=== PATIENT | female | born 1955 | race Caucasian/White ===

== ENCOUNTER 2023-10-10 07:22 | Emergency (ER) | payer MEDICARE, SELFPAY ==
[2023-10-10 07:28] VITALS: BP 166/96; PULSE 79; TEMP 36.6; O2SAT 98; BMI 32.8
--- NOTE | 2023-10-10 07:42 | ED_ITS ---
HPI - Chest Pain General Chief Complaint: Chest Pain Stated Complaint: CHEST PAIN WHEN BREATHING Time Seen by Provider: 10/10/23 07:42 Source: patient and family Mode of arrival: walk-in History of Present Illness HPI narrative: This patient is here for complaint of chest discomfort. She says for the most part it only bothers her when she takes a deep breath. It has been intermittent over the last 48 hours. There is no associated nausea vomiting or diaphoresis. There is no radiation to the neck jaw or arms. There is no tearing or ripping station. There is no associated shortness of breath. She denies any history of hypertension diabetes and she says her doctor is watching her cholesterol but she is not on any treatment. She has never had cardiac stress testing or coronary angiogram. She has no calcium scoring testing done in the past. She has no immediate family history of cardiac disease. She has no dyspnea on exertion. She says that she has been extremely busy with family events over this week and thinks it might be stress or heartburn. She says sometimes she belches when she drinks pop and sometimes it relieves it. She does not use tobacco products or any type of illicit drugs. Related Data Home Medications ?Medication ?Instructions ?Recorded ?Confirmed dapsone 5 % topical gel 1 applic topical DAILY 10/10/23 10/10/23 epinephrine 0.3 mg/0.3 mL 0.3 mg subcut ONCE PRN anaphylaxis 10/10/23 10/10/23 injection, auto-injector hydrochlorothiazide 12.5 mg capsule 12.5 mg PO Q12H 10/10/23 10/10/23 levothyroxine 75 mcg tablet 75 mcg PO DAILY 10/10/23 10/10/23 liothyronine 5 mcg tablet 5 mcg PO DAILY 10/10/23 10/10/23 Allergies Allergy/AdvReac Type Severity Reaction Status Date / Time bee venom protein (honey bee) Allergy Unknown Verified 10/10/23 07:32 Exam Narrative Exam Narrative: Awake alert modestly anxious. Skin is warm and dry mucous membranes are moist pink Vital signs are noted. She does have slight elevation of her blood pressure here we will monitor that. Initial twelve-lead EKG was done immediately on arrival shows sinus rhythm with no ST segment elevation or arrhythmia. It was compared to her previous EKG of 2006 and there is no interval change. Heart sounds are normal with no S3-S4 or murmur. No lungs were clear with no wheeze rales or rhonchi there is no pleural or pericardial rub. Legs have no edema phlebitis erythema warmth swelling or tenderness. Skin integument are normal. Cognition and mentation are normal. Constitutional Vital Signs, click to edit/add: Last Vital Signs Temp 97.8 F 10/10/23 07:28 Pulse 79 10/10/23 07:28 Resp 16 10/10/23 07:28 BP 166/96 H 10/10/23 07:28 Pulse Ox 98 10/10/23 07:28 O2 Del Method Room Air 10/10/23 07:28 Course Vital Signs Vital signs: Vital Signs Temperature 97.8 F 10/10/23 07:28 Pulse Rate 79 10/10/23 07:28 Respiratory Rate 16 10/10/23 07:28 Blood Pressure 166/96 H 10/10/23 07:28 Pulse Oximetry 98 10/10/23 07:28 Oxygen Delivery Method Room Air 10/10/23 07:28 Temperature 97.8 F 10/10/23 07:28 Pulse Rate 79 10/10/23 07:28 Respiratory Rate 16 10/10/23 07:28 Blood Pressure 166/96 H 10/10/23 07:28 Pulse Oximetry 98 10/10/23 07:28 Oxygen Delivery Method Room Air 10/10/23 07:28 MDM - Chest Pain MDM Narrative Medical decision making narrative: This patient's EKG cardiac enzymes chest x-ray are essentially normal. The chest x-ray is read as possible basilar atelectasis/infiltrate I do not believe this is infectious process. We discussed following up with her primary care doctor but I do not believe she has any immediate cardiovascular events. Discharge Plan Discharge Stand Alone Forms: Portal Instructions Chief Complaint: Chest Pain Clinical Impression: Chest pain Patient Disposition: Home, Self-Care Time of Disposition Decision: 09:23 Prescriptions / Home Meds: No Action liothyronine 5 mcg tablet 5 mcg PO DAILY hydrochlorothiazide 12.5 mg capsule 12.5 mg PO Q12H Patient Comments: pt states she does not always take daily epinephrine 0.3 mg/0.3 mL auto-injector 0.3 mg subcut ONCE PRN (Reason: anaphylaxis) dapsone 5 % gel 1 applic TOPICAL DAILY levothyroxine 75 mcg tablet 75 mcg PO DAILY Print Language: French Additional Instructions: This patient was referred to her primary care doctor for further diagnostic testing. May consider [id number] acid blocking medications Referrals: ULISES SHINE [Primary Care Provider] - 1 week
--- NOTE | 2023-10-10 08:00 | XR_ITS ---
The [address] [address] Patient Name: RADHA MCKEON MRN: [id number] date: 1955 Sex: F Assigned Patient Location: ER Current Patient Location: ER Accession/Order Number: [id number] Exam Date: 10/10/2023 08:15 Report Date: 10/10/2023 08:30 At the request of: LUIS BANKS Procedure: XR chest 1V EXAMINATION: XR chest 1V HISTORY: Chest pain COMPARISON: None FINDINGS: LUNGS: Mild opacity overlying lung bases. Upper lung regions are clear. VASCULATURE: No increased pulmonary vasculature. PLEURA: No pneumothorax, effusion, or pleural thickening. CARDIAC: No cardiomegaly or cardiac silhouette abnormality. MEDIASTINUM: No visible mass or adenopathy. BONES: No fracture or visible bone lesion. OTHER: Negative. XR/XR chest 1V IMPRESSION: 1. Mild bibasilar atelectasis versus infiltrates. Electronically authenticated by: JAREN CRISTOBAL Date: 10/10/2023 08:30
[2023-10-10 08:17] LABS: Basophils Percent Auto 0.5 % (0.2-2.0); Eosinophils Absolute Auto 0.1 10^3/uL (0.0-0.7); Hematocrit 42.6 % (36.0-48.0); Hemoglobin 14.6 g/dL (12.0-16.0); Immature Granulocytes Abs Auto 0.02 10^3/uL (0.00-0.03); Immature Granulocytes Pct Auto 0.3 % (0.0-0.5); Lymphocytes Absolute Auto 1.8 10^3/uL (1.2-3.8); Lymphocytes Percent Auto 29.8 % (20.5-60.0); Mean Corpuscular HGB Conc 34.3 g/dL (29.9-35.2); Mean Corpuscular Hemoglobin 31.7 pg (26.7-34.0); Mean Corpuscular Volume 92.6 fL (81.0-99.0); Mean Platelet Volume 9.9 fL (9.5-13.5); Monocytes Absolute Auto 0.5 10^3/uL (0.3-0.8); Monocytes Percent Auto 8.3 % (1.7-12.0); Neutrophils Absolute Auto 3.6 10^3/uL (1.4-6.5); Neutrophils Percent Auto 59.1 % (43.0-75.0); Platelet Count 272 10^3/uL (150-450); Red Cell Distribution Width 12.7 % (11.0-15.0); White Blood Count 6.2 10^3/uL (4.0-11.0)
[2023-10-10 08:39] LABS: Alanine Aminotransferase 29 U/L (14-59); Albumin Level 3.7 g/dL (3.4-5.0); Alkaline Phosphatase 64 U/L (46-116); Anion Gap 13.7; Aspartate Amino Transferase 24 U/L (15-37); BUN Creatinine Ratio 15.2; Bilirubin Total 0.5 mg/dL (0.2-1.0); Calcium 8.9 mg/dL (8.5-10.1); Chloride 103 mmol/L (98-107); Estimated GFR (African America >60 (>=60); Estimated GFR (Non-African Ame >60 (>=60); Globulin 3.7 g/dL; Glucose 120 mg/dL (74-106); Potassium 3.7 mmol/L (3.5-5.1); Sodium 141 mmol/L (136-145); Total Protein 7.4 g/dL (6.4-8.2); Troponin I High Sensitivity 8.8 pg/mL (4.0-51.3)
[2023-10-10 08:47] LABS: D Dimer 0.39 mg/L FEU (<=0.59)
[2023-10-10 09:17] VITALS: BP 170/100
--- NOTE | 2023-10-10 17:14 | ECG_ITS ---
The [facility] Test Date: 2023-10-10 Pat Name: RADHA MCKEON Department: Room: - Gender: Female [employer]: : 1955 Requested By: ULISES SHINE Order Number: [id number] Reading MD: WALLACE PATEL Measurements Intervals [place] Rate: 69 P: 76 AK: 140 QRS: 16 QRSD: 84 T: 25 QT: 394 QTc: 412 Interpretive Statements 1100 Sinus rhythm 9110 normal ECG No previous ECG available for comparison Electronically Signed On 10-10-2023 22:48:37 EDT by WALLACE PATEL
== END 2023-10-10 09:50 | disposition home or self-care (01) ==
PROVIDERS: Emergency Provider Emergency Medicine Emergency Medical Services; PCP Family Medicine
DX: R07.9 Chest pain, unspecified (principal)
CPT/HCPCS: 36415; 71045; 80053; 84484; 85025; 85378; 93005; 99284

== ENCOUNTER 2023-11-28 09:56 | Outpatient (OUT) | payer MEDICARE, SELFPAY ==
--- NOTE | 2023-11-28 | XR_ITS ---
The [address] [address] Patient Name: RADHA MCKEON MRN: [id number] date: 1955 Sex: F Assigned Patient Location: Current Patient Location: Accession/Order Number: [id number] Exam Date: 11/28/2023 10:00 Report Date: 11/30/2023 05:04 At the request of: JAREN GIBSON Procedure: XR knee RT 4V PROCEDURE: XR knee RT 4V HISTORY: RIGHT KNEE PAIN COMPARISON: None. FINDINGS: BONES:Marked narrowing of the medial joint space with onke-ni-zidp articulation. Tricompartmental periarticular degenerative osteophytes. No fracture or dislocation. SOFT TISSUES:No visible soft tissue swelling. EFFUSION:Moderate joint effusion. OTHER: Negative. XR/XR knee RT 4V IMPRESSION: 1. Marked degenerative joint disease and moderate size joint effusion. Electronically authenticated by: JAREN CRISTOBAL Date: 11/30/2023 05:04
--- OUTSIDE RECORDS SUMMARY | 2023-11-28 10:04 | XMS_ITS | CCD ---
Author Organization [facility] Care Team Providers Care Solderer Electronic Name Role Phone Malina Harrington Primary Care Physician Johnie Grider Primary Care Physician [phone] Johnie Grider Attending Unavailable Johine Grider Attending Unavailable Johnie Grider Attending Unavailable Johnie Grider Attending Unavailable Johnie Grider Attending Unavailable Johnie Grider Attending Unavailable Johnie Grider Attending Unavailable Johnie Grider Attending Unavailable Johnie Grider Admitting Unavailable Johnie Grider Attending Unavailable Johnie Grider Admitting Unavailable Johnie Grider Attending Unavailable Johnie Grider Attending Unavailable Johnie Grider Admitting Unavailable Johnie Grider Attending Unavailable Johnie Grider Attending Unavailable Allergies Allergy Classification Reported Allergen(s) Allergy Type Date of Onset Reaction(s) Facility (11 sources) Bee/Wasp/Ant venom; Translations: [Bee Stings] Drug allergy Itching (finding), Swelling (morphologic abnormality) [facility] Work Phone: Medications Current Medications Medication Drug Class(es) Dates Sig (Normalized) Sig (Original) Ocuvite (10 sources) Vitamin C Start: 06-26-2019 Ocuvite Refill(s) 0 Start Date: 06/26/19 Status: Ordered Calcium and Magnesium oral tablet (7 sources) Start: 06-26-2019 take 3 tablets by mouth once daily Calcium and Magnesium oral tablet Refill(s) 0, 3 tabs po daily Start Date: 06/26/19 Status: Ordered Zyrtec (9 sources) Histamine-1 Receptor Antagonist Start: 06-26-2019 Zyrtec Refills(s) 0 Start Date: 06/26/19 Status: Ordered Dapsone (10 sources) Sulfone Start: 04-28-2023 dapsone 5% gel dapsone 5% gel, See Instructions, 60 gm, 1, apply to affected area daily, [facility]/pharmacy #[id number], Supply, 171, cm, 04/28/23 14:49:00 EST, Height/Length Dosing, 98.8, kg, 04/28/23 14:49:00 EST, Weight Dosing Start Date: 04/28/23 Status: Ordered Start: 01-18-2022 dapsone 5% gel dapsone 5% gel, See Instructions, 60 gm, 1, apply to affected area daily, [facility]/pharmacy #[id number], Supply, 175, cm, 08/31/21 11:13:00 EDT, Height/Length Dosing, 96, kg, 08/31/21 11:13:00 EDT, Weight Dosing Start Date: 01/18/22 Status: Ordered Start: 04-08-2021 [id number] 0.3 ml EPINEPHrine 1 mg/ml auto-injector (10 sources) alpha-Adrenergic Agonist, beta-Adrenergic Agonist, Catecholamine Start: 08-25-2022 EpiPen 2-Beau 0.3 mg injectable kit 0.3 mg, IntraMuscular, Once, prn, # 1 EA, Refills(s) 2, ELISE, [id number] 175, cm, 03/02/22 11:35:00 EST, Height/Length Dosing, 91, kg, 03/02/22 11:35:00 EST, Weight Dosing Start Date: 08/25/22 Status: Ordered Start: 03-02-2021 EpiPen 2-Beau 0 .3 mg injectable kit 0.3 mg, IntraMuscular, Once, prn, # 1 kit(s), Refills(s) 2, [id number], 175, cm, 03/02/21 11:09:00 EST, Height/Length Dosing, 99.1, kg, 03/02/21 11:09:00 EST, Weight Dosing Start Date: 03/02/21 Status: Ordered Start: 03-02-2021 EpiPen 2-Beau 0 .3 mg injectable kit 0.3 mg, IntraMuscular, Once, prn, # 1 kit(s), Refills(s) 2, Pharmacy: [facility]/pharmacy #[id number], 175, cm, 03/02/21 11:09:00 EST, Height/Length Dosing, 99.1, kg, 03/02/21 11:09:00 EST, Weight Dosing Start Date: 03/02/21 Status: Ordered Flax Seed Oil oral capsule (7 sources) Start: 06-26-2019 Flax Seed Oil oral capsule Refill(s) 0 Start Date: 06/26/19 Status: Ordered hydroCHLOROthiazide 12.5 mg oral capsule (1 source) Thiazide Diuretic Start: 07-25-2023 take 1 capsule by mouth once daily hydrochlorothiazide 12.5 mg Cap See Instructions, TAKE 1 CAPSULE BY MOUTH EVERY DAY, # 90 cap(s), Refills(s) 0, Pharmacy: [facility] STORE [id number], 171, cm, 04/28/23 14:49:00 EST, Height/Length Dosing, 98.8, kg, 04/28/23 14:49:00 EST, Weight Dosing Start Date: 07/25/23 Status: Ordered levothyroxine sodium 0.075 mg oral tablet (1 source) l-Thyroxine Start: 09-01-2023 take 1 tablet by mouth once daily levothyroxine 75 mcg (0.075 mg) Tab 75 mcg = 1 tab(s), Oral, Daily, # 90 tab(s), Refills(s) 0, Pharmacy: [facility]/pharmacy #[id number], 171, cm, 09/01/23 10:32:00 EDT, Height/Length Dosing, 103.2, kg, 09/01/23 10:32:00 EDT, Weight Dosing Start Date: 09/01/23 Status: Ordered liothyronine sodium 0.005 mg oral tablet (1 source) l-Triiodothyr onine Start: 09-01-2023 take 1 tablet by mouth once daily liothyronine 5 mcg Tab 5 mcg = 1 tab(s), Oral, Daily, # 90 tab(s), Refills(s) 0, Pharmacy: [facility]/pharmacy #[id number], 171, cm, 09/01/23 10:32:00 EDT, Height/Length Dosing, 103.2, kg, 09/01/23 10:32:00 EDT, Weight Dosing Start Date: 09/01/23 Status: Ordered lysine 500 mg oral tablet (10 sources) Start: 06-26-2019 take 1 tablet by mouth once daily lysine 500 mg oral tablet 500 mg = 1 tab(s), Oral, Daily, # 100 tab(s), Refills(s) 0 Start Date: 06/26/19 Status: Ordered thyroid (snf) 60 mg oral tablet (12 sources) Start: 01-27-2023 take 1 tablet by mouth once daily [place] Thyroid 60 mg Tab 60 mg = 1 tab(s), Oral, Daily, # 30 tab(s), Refills(s) 2, Pharmacy: [facility]/pharmacy #[id number], 170.2, cm, 01/17/23 9:33:00 EDT, Height/Length Dosing, 98.6, kg, 01/17/23 9:33:00 EDT, Weight Dosing Start Date: 01/27/23 Status: Ordered Start: 10-22-2022 take 1 tablet by rachael th once daily [place] Thyroid 90 mg Tab 90 mg = 1 tab(s), Oral, Daily, # 90 tab(s), Refills(s) 0, Pharmacy: [facility]/pharmacy #[id number], 170.2, cm, 10/13/22 8:53:00 EDT, Height/Length Dosing, 98.3, kg, 10/13/22 8:53:00 EDT, Weight Dosing Start Date: 10/22/22 Status: Ordered Start: 08-17-2022 take 1 tablet by rachael th once daily [place] Thyroid 60 mg Tab 60 mg = 1 tab(s), Oral, Daily, one tab 60mg oral once daily Tuesday and ELISE no generic, # 90 tab(s), Refills(s) 0, Pharmacy: [facility]/pharmacy #[id number], 175, cm, 03/02/22 11:35:00 EST, Height/Length Dosing, 91, kg, 03/02/22 11:35:... Start Date: 08/17/22 Status: Ordered Start: 06-01-2022 take 1 tablet by mouth once [place] Thyroid 90 mg Tab 90 mg = 1 tab(s), Oral, Daily, One 90mg tab once on Tuesday ELISE no generic, # 90 tab(s), Refills(s) 1, Pharmacy: [facility]/pharmacy #[id number], 175, cm, 03/02/22 11:35:00 EST, Height/Length Dosing, 91, kg, 03/02/22 11:35:00 EST, Weight Dosing Start Date: 06/01/22 Status: Ordered Start: 02-01-2022 take 1 tablet by rachael th once daily [place] Thyroid 90 mg Tab 90 mg = 1 tab(s), Oral, Daily, # 30 tab(s), Refills(s) 2, [id number] 175, cm, 08/31/21 11:13:00 EDT, Height/Length Dosing, 96, kg, 08/31/21 11:13:00 EDT, Weight Dosing Start Date: 02/01/22 Status: Ordered Start: 11-02-2021 take 1 tablet by rachael once daily [place] Thyroid 90 mg Tab 90 mg = 1 tab(s), Oral, Daily, # 60 tab(s), Refills(s) 0, [id number], 175, cm, 08/31/21 11:13:00 EDT, Height/Length Dosing, 96, kg, 08/31/21 11:13:00 EDT, Weight Dosing Start Date: 11/02/21 Status: Ordered Start: 04-08-2021 [place] Thyroid 15 mg Tab 15 mg = 1 tab(s), Oral, Daily, Take with 120mg [place] Thyroid for a total of 135mg daily., # 90 tab(s), Refills(s) 2, [id number], 175, cm, 03/02/21 11:09:00 EST, Height/Length Dosing, 99.1, kg, 03/02/21 11:09:00 EST, Weight Dosing Start Date: 04/08/21 Status: Ordered Start: 03-04-2021 [place] Thyroid 120 mg Tab 120 mg = 1 tab(s), Oral, Daily, take with 15mg dosage to equal 135mg, # 90 tab(s), Refills(s) 2, [id number], 175, cm, 03/02/21 11:09:00 EST, Height/Length Dosing, 99.1, kg, 03/02/21 11:09:00 EST, Weight Dosing Start Date: 03/04/21 Status: Ordered Turmeric extract (1 source) Start: 04-07-2023 Turmeric Oral, Daily, Refill(s) 0 Start Date: 04/07/23 Status: Ordered Vitamin B6 100 mg Tab (10 sources) Start: 06-26-2019 Vitamin B6 100 mg Tab Refills(s) 0 Start Date: 06/26/19 Status: Ordered Completed/Discontinued Medications Medication Drug Class(es) Dates Sig (Normalized) Sig (Original) biotin 1 mg oral tablet (10 sources) Start: 06-26-2019 take 1 tablet by mouth once daily biotin 1000 mcg oral tablet 1,000 microgram = 1 tab(s), Oral, Daily, # 30 tab(s), Refills(s) 0 Start Date: 06/26/19 Status: Ordered calcitriol 0.363043 mg/mg topical ointment (9 sources) Vitamin D3 Analog Start: 02-28-2020 apply 3 ug topically twice daily calcitriol topical 3 mcg/g ointment See Instructions, 100 gm, Refill(s) 1, Apply BID to affected areas as directed, [facility]/pharmacy #[id number], 175, cm, 02/25/20 12:49:00 EST, Height/Length Dosing, 101.3, kg, 02/25/20 12:49:00 EST, Weight Dosing Start Date: 02/28/20 Status: Ordered calcitriol topical 3 mcg/g ointment (1 source) Start: 02-28-2020 apply 3 ug topically twice daily calcitriol topical 3 mcg/g ointment See Instructions, 100 gm, Refill(s) 1, Apply BID to affected areas as directed, [facility]/pharmacy #[id number], 175, cm, 02/25/20 12:49:00 EST, Height/Length Dosing, 101.3, kg, 02/25/20 12:49:00 EST, Weight Dosing Start Date: 02/28/20 Status: Ordered Vitamin D3 5000 intl units oral capsule (10 sources) Start: 06-26-2019 take 1 capsule by mouth once daily at mealtime Vitamin D3 5000 intl units oral capsule 5,000 International_Uni t = 1 cap(s), Oral, Daily, with food, # 100 cap(s), Refills(s) 0 Start Date: 06/26/19 Status: Ordered Problems Problem Classification Problem Date Documented Date Episodic/Chronic Allergic reactions (10 sources) Allergy to bee venom 08-25-2020 Episodic Essential hypertension (12 sources) Essential hypertension; Translations: [Essential (primary) hypertension] Onset: 08-31-2021 Chronic Nutritional deficiencies (7 sources) Vitamin D deficiency 02-25-2020 Chronic Osteoarthritis (3 sources) Osteoarthritis 01-17-2023 Chronic Other circulatory disease (2 sources) Spider nevus 03-14-2023 Episodic Other nutritional; endocrine; and metabolic disorders (10 sources) Body mass index 30+ - obesity 06-26-2019 Chronic Other nutritional; endocrine; and metabolic disorders (10 sources) Obesity 08-25-2020 Chronic Other nutritional; endocrine; and metabolic disorders (4 sources) H/O: Disorder; Translations: [Personal history of other endocrine, nutritional and metabolic disease] Onset: 08-31-2021 Episodic Other nutritional; endocrine; and metabolic disorders (10 sources) H/O: nutritional disorder 08-31-2021 Episodic Other nutritional; endocrine; and metabolic disorders (10 sources) History of nutritional deficiency 08-31-2021 Episodic Other nutritional; endocrine; and metabolic disorders (1 source) Weight gain 09-01-2023 Episodic Other screening for suspected conditions (not mental disorders or infectious disease) (1 source) Screening for malignant neoplasm of colon done; Translations: [Encounter for screening for malignant neoplasm of colon] Onset: 03-02-2022 Episodic Residual codes; unclassified (6 sources) Parasomnia; Translations: [Parasomnia, unspecified] Onset: 08-26-2022 Chronic Residual codes; unclassified (6 sources) Noncompliance with treatment; Translations: [Patient's noncompliance with other medical treatment and regimen due to unspecified reason] Onset: 08-26-2022 Episodic Thyroid disorders (13 sources) Hypothyroidism; Translations: [Hypothyroidism, unspecified] Onset: 08-31-2021 Chronic Unclassified (10 sources) Cancer cervix screening status 06-26-2019 Unclassified (20 sources) Patient encounter status 02-25-2020 Results Test Name Value Interpretation Reference Range Facil ity Ambulatory Visit Summaryon 0 10-18-2023 Ambulatory Visit Summary LORAINE LANDEROS :1955 Visit Date:10/18/2023 Ambulatory Visit Instructions Your Diagnosis Follow-up encounter involving medication Chest pain BMI 34.0-34.9,adult Class 1 obesity due to excess calories in adult Nonsmoker Your Care Team Attending Physician - Johnie Grider MD Primary Care Physician - Johnie Grider MD This Is Your Medications List Contact prescribing physician if questions or concerns Misc Prescription (dapsone 5% gel) Turmeric biotin (biotin 1000 mcg oral tablet) calcitriol topical (calcitriol topical 3 mcg/g ointment) cholecalciferol (Vitamin D3 5000 intl units oral capsule) epinephrine (EpiPen 2-Beau 0.3 mg injectable kit) hydrochlorothiazide (hydrochlorothiazide 12.5 mg Cap) levothyroxine (levothyroxine 75 mcg (0.075 mg) Tab) liothyronine (liothyronine 5 mcg Tab) lysine (lysine 500 mg oral tablet) multivitamin with minerals (Ocuvite) pyridoxine (Vitamin B6 100 mg Tab) Procedures Performed Bilateral tubal ligation, D&C - Dilatation and curettage. Discharge Vitals Temperature (Oral) 36.7 ?C Heart Rate (Peripheral) 68 Respiratory Rate 16 Blood Pressure 126/78 Height 171 cm Height 67 in Weight 102.2 kg Weight 224.84 lb BMI 34.95 What to do next Scheduled Follow-Up Appointments Tuesday 8:00 AM EST Where: [facility] [place] Normal [facility] Family Medicine Office/Clini c Noteon 10-18-2023 Family Medicine Office/Clinic Note HPI Staff Loraine is a 68 year old female presenting for ER follow up ER followup: Hospital: [place] Visit date:10/09 Symptoms the patient presented with: chest pain pulled muscle EKG and chest X-ray done in ER Current concerns: none History of Present Illness - In the ER for CP - Diagnosed as noncardiac - NO SOB - Doing well. - Using tums. Review of Systems PHQ Score Initial Depression Screen Score: 0 SCORE Physical Exam Vitals & Measurements T: 36.7 ?C(Oral) HR: 68(Peripheral) RR: 16 BP: 126/78 SpO2: 98% HT: 67 in HT: 171 cm WT: 102.2 kg WT: 224.84 lb BMI: 34.95 General: alert, no acute distress ENMT: oral mucosa moist, Cardiovascular: regular rate and rhythm, normal peripheral perfusion Respiratory: Lungs CTA, respirations non labored Extremities: no deformity, no trauma Neurological: oriented x 4, LOC appropriate for age, CN II-XII intact, motor strength equal & normal bilaterally, speech normal Abdomen: Soft, Nontender, Non-distended, + BS Assessment/Plan Total time spent preparing for the encounter, evaluating and assessing the patient, documenting the visit, and ordering appropriate follow-up work was 40 minutes. 1. Follow-up encounter involving medication (Z79.899: Other parts counterman (current) drug therapy) - Pt was prescribed medications. - Pt is only going to take Tums - No other issues 2. Chest pain (R07.9: Chest pain, unspecified) - Resolved - 2/2 GERD 3. BMI 34.0-34.9,adult (Z68.34: Body mass index [BMI] 34.0-34.9, adult) - BMI education added Ordered: Body Mass Index (BMI) documented 3008F Current tobacco non-user 1036F Depression Screening Negative 3352F Most recent diastolic blood pressure <80 mm Hg 3078F Patient screen for fall risk: no falls in last year or 1 fall with no injury in last year 1101F Systolic BP <130 mm Hg (Most Recent) 3074F 4. Class 1 obesity due to excess calories in adult (E66.09: Other obesity due to excess calories) - Diet and exercise advised Ordered: Body Mass Index (BMI) documented 3008F Current tobacco non-user 1036F Depression Screening Negative 3352F Most recent diastolic blood pressure <80 mm Hg 3078F Patient screen for fall risk: no falls in last year or 1 fall with no injury in last year 1101F Systolic BP <130 mm Hg (Most Recent) 3074F 5. Nonsmoker (Z78.9: Other specified health status) - Please continue to not smoke Ordered: Body Mass Index (BMI) documented 3008F Current tobacco non-user 1036F Depression Screening Negative 3352F Most recent diastolic blood pressure <80 mm Hg 3078F Patient screen for fall risk: no falls in last year or 1 fall with no injury in last year 1101F Systolic BP <130 mm Hg (Most Recent) 3074F Follow-up No qualifying data available Patient Education BMI for Adults Problem List/Past Medical History Ongoing Bee sting allergy BMI 33.0-33.9,adult Breast cancer screening Cervical cancer screening Chest pain Follow-up encounter involving medication History of non anemic vitamin B12 deficiency History of vitamin D deficiency Hypothyroidism, unspecified type Non-compliance Obesity Osteoarthritis Parasomnia Screen for colon cancer Screening for cardiovascular condition Spider angioma Weight gain White coat syndrome with hypertension Historical No qualifying data Procedure/Surgical History Bilateral tubal ligation, D&C - Dilatation and curettage. Medications biotin 1000 mcg oral tablet, 1000 mcg= 1 tab(s), Oral, Daily calcitriol topical 3 mcg/g ointment, See Instructions, 1 refills dapsone 5% gel, See Instructions, 1 refills EpiPen 2-Beau 0.3 mg injectable kit, 0.3 mg, IntraMuscular, Once, 2 refills hydrochlorothiazide 12.5 mg Cap, See Instructions levothyroxine 75 mcg (0.075 mg) Tab, 75 mcg= 1 tab(s), Oral, Daily liothyronine 5 mcg Tab, 5 mcg= 1 tab(s), Oral, Daily lysine 500 mg oral tablet, 500 mg= 1 tab(s), Oral, Daily Ocuvite Turmeric, Oral, Daily Vitamin B6 100 mg Tab Vitamin D3 5000 intl units oral capsule, 5000 International_Unit= 1 cap(s), Oral, Daily Allergies Bee Stings (Itching, Swelling) Social History Alcohol - Denies Alcohol Use, 06/26/2019 Household alcohol concerns: No., 08/26/2022 Substance Abuse - Denies Substance Abuse, 06/26/2019 Household substance abuse concerns: No., 08/26/2022 Tobacco - Denies Tobacco Use, 12/01/2020 Never (less than 100 in lifetime) Tobacco Use:. Never Smokeless Tobacco Use:. Household tobacco concerns: No., 10/18/2023 Family History Anxiety: Mother. Depression: Mother. Diabetes mellitus type 2: Father and Brother. Hypertension: Mother. Stroke: Mother. Immunizations Vaccine Date Status Comments influenza virus vaccine, inactivated - Not Given Patient Refuses Normal [facility] Comment on above: Result Comment: Elec tronically Signed By: Cheo GUERRERO, Johnie Zaman.br\Date and Time Signed: 10/18/23 15:34 EDT Patient Educationon 10-18-19 Patient Education Nutrition BMI for Adults What is BMI? Body mass index (BMI) is a number that is calculated from a person's weight and height. BMI can help estimate how much of a person's weight is composed of fat. BMI does not measure body fat directly. Rather, it is an alternative to procedures that directly measure body fat, which can be difficult and expensive. BMI can help identify people who may be at higher risk for certain medical problems. What are BMI measurements used for? BMI is used as a screening tool to identify possible weight problems. It helps determine whether a person is obese, overweight, a healthy weight, or underweight. BMI is useful for: ? Identifying a weight problem that may be related to a medical condition or may increase the risk for medical problems. ? Promoting changes, such as changes in diet and exercise, to help reach a healthy weight. BMI screening can be repeated to see if these changes are working. How is BMI calculated? BMI involves measuring your weight in relation to your height. Both height and weight are measured, and the BMI is calculated from those numbers. This can be done either in [place] or metric measurements. Note that charts and online BMI calculators are available to help you find your BMI quickly and easily without having to do these calculations yourself. To calculate your BMI in [place] measurements: 1. Measure your weight in pounds (lb). 2. Multiply the number of pounds by 703. ? For example, for a person who weighs 180 lb, multiply that number by 703, which equals 126,540. 3. Measure your height in inches. Then multiply that number by itself to get a measurement called inches squared. ? For example, for a person who is 70 inches tall, the inches squared measurement is 70 inches x 70 inches, which equals 4,900 inches squared. 4. Divide the total from step 2 (number of lb x 703) by the total from step 3 (inches squared): 126,540 ? 4,900 = 25.8. This is your BMI. To calculate your BMI in metric measurements: 1. Measure your weight in kilograms (kg). 2. Measure your height in meters (m). Then multiply that number by itself to get a measurement called meters squared. ? For example, for a person who is 1.75 m tall, the meters squared measurement is 1.75 m x 1.75 m, which is equal to 3.1 meters squared. 3. Divide the number of kilograms (your weight) by the meters squared number. In this example: 70 ? 3.1 = 22.6. This is your BMI. What do the results mean? BMI charts are used to identify whether you are underweight, normal weight, overweight, or obese. The following guidelines will be used: ? Underweight: BMI less than 18.5. ? Normal weight: BMI between 18.5 and 24.9. ? Overweight: BMI between 25 and 29.9. ? Obese: BMI of 30 or above. Keep these notes in mind: ? Weight includes both fat and muscle, so someone with a muscular build, such as an athlete, may have a BMI that is higher than 24.9. In cases like these, BMI is not an accurate measure of body fat. ? To determine if excess body fat is the cause of a BMI of 25 or higher, further assessments may need to be done by a health care provider. ? BMI is usually interpreted in the same way for men and women. Where to find more information For more information about BMI, including tools to quickly calculate your BMI, go to these websites: ? Centers for Disease Control and Prevention: www.cdc.gov ? [place] [employer] Association: www.heart.org ? National Heart, Lung, and Blood Cost: www.nhlbi.nih.gov Summary ? Body mass index (BMI) is a number that is calculated from a person's weight and height. ? BMI may help estimate how much of a person's weight is composed of fat. BMI can help identify those who may be at higher risk for certain medical problems. ? BMI can be measured using [place]ese measurements or metric measurements. ? BMI charts are used to identify whether you are underweight, normal weight, overweight, or obese. This information is not intended to replace advice given to you by your health care provider. Make sure you discuss any questions you have with your health care provider. Document Revised: 01/02/2020 Document Reviewed: 11/09/2019 [employer] Patient Education ? 2022 [employer] Normal [facility] ECG 12-Leadon 10-11-2023 ECG 12-Lead [id number] .00TIFF Normal [facility] ED Note-Physicianon 10-11-19 ED Note-Physician [id number]. 00TIFF Normal [facility] RAD - MISCon 10-11-2023 [facility] MIS [id number]. 00TIFF Normal [facility] .Thyroglobulin by IMAon 08-23 Thyroglobulin [Mass/Vol] 18.5 ng/mL Invalid Interpretation Code 1.5-38.5 [facility] Comment on above: Result Comment: Acco rding to the National Academy of Clinical Biochemistry, the reference interval for Thyroglobulin (TG) should be related to euthyroid patients and not for patients who underwent thyroidectomy. TG reference intervals for these patients depend on the residual mass of the thyroid tissue left after surgery. Establishing a post-operative baseline is recommended. The assay limit of quantitation is 0.1 ng/mL Thyroglobulin measured by Ivanna Maritza Immunometric Assay Performed at: [facility] [address] [id number] PhD Bernadette Vitale Performed By: #### 2 [id number] ####[facility] [address] [place] [address] Physician Referralon 024 Physician Referral [id number] 1.00TIFF Normal [facility] T3 Freeon 09-07-2023 Free T3 [Mass/Vol] 3.4 pg/mL Invalid Interpretation Code 2.0-4.4 [facility] Comment on above: Result Comment: Perf ormed at: [facility] [address] [place], [place] [id number] PhD Bernadette Vitale Performed By: #### 2 [id number] ####[facility] [id number] [place] [address] TgAb+Thyroglobulinon 024 Thyroglobulin Ab Qn [IU]/mL Invalid Interpretation Code 0.0-0.9 [facility] Comment on above: Result Comment: Thyr oglobulin Antibody measured by Ivanna Cook Sta Methodology It should be noted that the presence of thyroglobulin antibodies may not be pathogenic nor diagnostic, especially at very low levels. The assay top ironer has found that four percent of individuals without evidence of thyroid disease or autoimmunity will have positive TgAb levels up to 4 IU/mL. Performed at: [facility] [address], [place] [id number] PhD Bernadette Vitale Performed By: #### 2 [id number] ####[facility] [address] [place] [address] Thyroid Perox.tpo Abon 09-06 TPO Ab Qn 10 International_Unit/mL Invalid Interpretation Code 0-34 [facility] Comment on above: Result Comment: Perf ormed at: [facility] [address] [place] [address] [id number] PhD Bernadette Vitale Performed By: #### 2 [id number] ####[facility] [address] [place] [address] Ambulatory Visit Summaryon 0 09-01-2023 Ambulatory Visit Summary LORAINE LANDEROS :1955 Visit Date:09/01/2023 Ambulatory Visit Instructions Your Diagnosis Hypothyroidism, unspecified type BMI 35.0-35.9,adult Class 1 obesity due to excess calories in adult Nonsmoker Non-compliance History of vitamin D deficiency Weight gain Your Care Team Attending Physician - Johnie Grider MD Primary Care Physician - Johnie Grider MD This Is Your Medications List Misc Prescription (dapsone 5% gel) Turmeric biotin (biotin 1000 mcg oral tablet) calcitriol topical (calcitriol topical 3 mcg/g ointment) cetirizine (Zyrtec) cholecalciferol (Vitamin D3 5000 intl units oral capsule) epinephrine (EpiPen 2-Beau 0.3 mg injectable kit) hydrochlorothiazide (hydrochlorothiazide 12.5 mg Cap) levothyroxine (levothyroxine 75 mcg (0.075 mg) Tab) liothyronine (liothyronine 5 mcg Tab) lysine (lysine 500 mg oral tablet) multivitamin with minerals (Ocuvite) pyridoxine (Vitamin B6 100 mg Tab) Procedures Performed Bilateral tubal ligation, D&C - Dilatation and curettage. Discharge Vitals Temperature (Oral) 36.6 ?C Heart Rate (Peripheral) 96 Respiratory Rate 16 Blood Pressure 138/88 Height 67 in Height 171 cm Weight 227.04 lb Weight 103.2 kg BMI 35.29 What to do next Scheduled Follow-Up Appointments Tuesday 8:00 AM EST Where: [facility] [place] Normal [facility] CHEMISTRYOrdered By: SYSTEM SYSTEM on 09-01-2023 Free T4 [Mass/Vol] 1.03 ng/dL Normal 0.58 - 1.64 ng/dL AWAK TSH Qn 0.60 m[IU]/L Normal 0.34 - 5.60 mcIU/mL Remisol Chem Family Medicine Office/Clini c Noteon 09-01-2023 Family Medicine Office/Clinic Note HPI Staff Loraine is a 67 year old female presenting for 6 month follow up hypothyroidism Patient is here for follow up on Thyroid Disease. Do you have any of the following symptoms? Change in energy level? yes wakes up tired, but sleeps good Weight change? yes up and watching her diet closely Heat/cold intolerance? no Hair/skin/nail changes? no Change in bowels? no Last TSH: TSH: 0.88 mcIU/mL (03/14/23 10:31:00) T3 Free: 3.9 (03/14/23) T4 Free: 0.83 ng/dL (10/13/22) questions/concerns: doesn't like Dr Restrepo and will not be going back to him Has what labs he wants done would like to do them here under you Needs her epipen refilled History of Present Illness - Pt here for follow up. - Saw tonny who added Liothrinine - Pt angry because she gained 10 pounds. - Believes she is not getting the meds she needs - Labs ordered and patient does not want to see Endo again. Review of Systems PHQ Score Initial Depression Screen Score: 0 SCORE Physical Exam Vitals & Measurements T: 36.6 ?C(Oral) HR: 96(Peripheral) RR: 16 BP: 138/88 SpO2: 99% HT: 67 in HT: 171 cm WT: 103.2 kg WT: 227.04 lb BMI: 35.29 General: alert, no acute distress ENMT: oral mucosa moist, Cardiovascular: regular rate and rhythm, normal peripheral perfusion Respiratory: Lungs CTA, respirations non labored Extremities: no deformity, no trauma Neurological: oriented x 4, LOC appropriate for age, CN II-XII intact, motor strength equal & normal bilaterally, speech normal Abdomen: Soft, Nontender, Non-distended, + BS Assessment/Plan 1. Hypothyroidism, unspecified type (E03.9: Hypothyroidism, unspecified) - Will look at labs - Will send to Dr. Angeles for functional medicine. - Last TSH was normal. Ordered: Body Mass Index (BMI) documented 3008F Current tobacco non-user 1036F Depression Screening Negative 3352F Free T4 Lab Specimen Collect [id number] Most recent diastolic blood pressure >=90 mm Hg 3080F Most recent systolic blood pressure >= 140 mm Hg 3077F Patient screen for fall risk: no falls in last year or 1 fall with no injury in last year 1101F T3 Free TgAb+Thyroglobulin,IM A or ANGELINA Thyroid Perox.tpo Ab Thyroid Stimulating Hormone 2. BMI 35.0-35.9,adult (Z68.35: Body mass index [BMI] 35.0-35.9, adult) - BMI education given. Ordered: Body Mass Index (BMI) documented 3008F Current tobacco non-user 1036F Depression Screening Negative 3352F Free T4 Lab Specimen Collect 68547 Most recent diastolic blood pressure >=90 mm Hg 3080F Most recent systolic blood pressure >= 140 mm Hg 3077F Patient screen for fall risk: no falls in last year or 1 fall with no injury in last year 1101F T3 Free TgAb+Thyroglobulin,IM A or ANGELINA Thyroid Perox.tpo Ab Thyroid Stimulating Hormone 3. Class 1 obesity due to excess calories in adult (E66.09: Other obesity due to excess calories) - Diet and exercise advised Ordered: Body Mass Index (BMI) documented 3008F Current tobacco non-user 1036F Depression Screening Negative 3352F Free T4 Lab Specimen Collect 99141 Most recent diastolic blood pressure >=90 mm Hg 3080F Most recent systolic blood pressure >= 140 mm Hg 3077F Patient screen for fall risk: no falls in last year or 1 fall with no injury in last year 1101F T3 Free TgAb+Thyroglobulin,IM A or ANGELINA Thyroid Perox.tpo Ab Thyroid Stimulating Hormone 4. Nonsmoker (Z78.9: Other specified health status) - Please continue to not smoke. Ordered: Body Mass Index (BMI) documented 3008F Current tobacco non-user 1036F Depression Screening Negative 3352F Free T4 Lab Specimen Collect 10155 Most recent diastolic blood pressure >=90 mm Hg 3080F Most recent systolic blood pressure >= 140 mm Hg 3077F Patient screen for fall risk: no falls in last year or 1 fall with no injury in last year 1101F T3 Free TgAb+Thyroglobulin,IM A or ANGELINA Thyroid Perox.tpo Ab Thyroid Stimulating Hormone 5. Non-compliance (Z91.199: Patient's noncompliance with other medical treatment and regimen due to unspecified reason) - Concerned as the patient gets frustrated at all the providers she see and then never follows up. Ordered: Free T4 Lab Specimen Collect 08775 T3 Free TgAb+Thyroglobulin,IM A or ANGELINA Thyroid Perox.tpo Ab Thyroid Stimulating Hormone 6. History of vitamin D deficiency (Z86.39: Personal history of other endocrine, nutritional and metabolic disease) - Pt to continue to take Vitamin D. - Reviewed labs Ordered: Free T4 T3 Free TgAb+Thyroglobulin,IM A or ANGELINA Thyroid Perox.tpo Ab Thyroid Stimulating Hormone 7. Weight gain (R63.5: Abnormal weight gain) - Pt believes this to be because of her Thyroid. - In the visit she talked about the cake she is eating and how she cheats. But eats healthy. - She talks about how she does not exercise but stays busy and that should help her weight. - One of the concerns is her staying active is all sitting. IE mowing the yard, but is on a riding (more content not included)... Normal [facility] Comment on above: Result Comment: Elec tronically Signed By: Cheo GUERRERO, Johnie Howe\.br\Date and Time Signed: 09/01/23 11:24 EDT Free T4on 09-01-2023 Free T4 [Mass/Vol] 1.03 ng/dL Normal 0.58-1.64 [facility] Comment on above: Performed By: #### 2 [id number], [id number] ####[facility] [address] [place] [address] Patient Educationon 09-01-19 Patient Education Nutrition BMI for Adults What is BMI? Body mass index (BMI) is a number that is calculated from a person's weight and height. BMI can help estimate how much of a person's weight is composed of fat. BMI does not measure body fat directly. Rather, it is an alternative to procedures that directly measure body fat, which can be difficult and expensive. BMI can help identify people who may be at higher risk for certain medical problems. What are BMI measurements used for? BMI is used as a screening tool to identify possible weight problems. It helps determine whether a person is obese, overweight, a healthy weight, or underweight. BMI is useful for: ? Identifying a weight problem that may be related to a medical condition or may increase the risk for medical problems. ? Promoting changes, such as changes in diet and exercise, to help reach a healthy weight. BMI screening can be repeated to see if these changes are working. How is BMI calculated? BMI involves measuring your weight in relation to your height. Both height and weight are measured, and the BMI is calculated from those numbers. This can be done either in [place] or metric measurements. Note that charts and online BMI calculators are available to help you find your BMI quickly and easily without having to do these calculations yourself. To calculate your BMI in [place] measurements: 1. Measure your weight in pounds (lb). 2. Multiply the number of pounds by 703. ? For example, for a person who weighs 180 lb, multiply that number by 703, which equals 126,540. 3. Measure your height in inches. Then multiply that number by itself to get a measurement called inches squared. ? For example, for a person who is 70 inches tall, the inches squared measurement is 70 inches x 70 inches, which equals 4,900 inches squared. 4. Divide the total from step 2 (number of lb x 703) by the total from step 3 (inches squared): 126,540 ? 4,900 = 25.8. This is your BMI. To calculate your BMI in metric measurements: 1. Measure your weight in kilograms (kg). 2. Measure your height in meters (m). Then multiply that number by itself to get a measurement called meters squared. ? For example, for a person who is 1.75 m tall, the meters squared measurement is 1.75 m x 1.75 m, which is equal to 3.1 meters squared. 3. Divide the number of kilograms (your weight) by the meters squared number. In this example: 70 ? 3.1 = 22.6. This is your BMI. What do the results mean? BMI charts are used to identify whether you are underweight, normal weight, overweight, or obese. The following guidelines will be used: ? Underweight: BMI less than 18.5. ? Normal weight: BMI between 18.5 and 24.9. ? Overweight: BMI between 25 and 29.9. ? Obese: BMI of 30 or above. Keep these notes in mind: ? Weight includes both fat and muscle, so someone with a muscular build, such as an athlete, may have a BMI that is higher than 24.9. In cases like these, BMI is not an accurate measure of body fat. ? To determine if excess body fat is the cause of a BMI of 25 or higher, further assessments may need to be done by a health care provider. ? BMI is usually interpreted in the same way for men and women. Where to find more information For more information about BMI, including tools to quickly calculate your BMI, go to these websites: ? Centers for Disease Control and Prevention: www.cdc.gov ? [place] Heart Association: www.heart.org ? National Heart, Lung, and Blood Cost: www.nhlbi.nih.gov Summary ? Body mass index (BMI) is a number that is calculated from a person's weight and height. ? BMI may help estimate how much of a person's weight is composed of fat. BMI can help identify those who may be at higher risk for certain medical problems. ? BMI can be measured using [place]ese measurements or metric measurements. ? BMI charts are used to identify whether you are underweight, normal weight, overweight, or obese. This information is not intended to replace advice given to you by your health care provider. Make sure you discuss any questions you have with your health care provider. Document Revised: 01/02/2020 Document Reviewed: 11/09/2019 [email or web address] Patient Education ? 2022 [employer] Normal [facility] TSHon 09-01-2023 TSH Qn 0.60 m[IU]/L Normal 0.34-5.60 [facility] Comment on above: Performed By: #### 2 [id number], [id number] ####[facility] [address] [place] [address] Family Medicine Office/Clini c Noteon 05-02-2023 Family Medicine Office/Clinic Note HPI Staff Loraine is a 67 year old female presenting for acute visit Acute: high BP, wants to discuss medication History of Present Illness Loraine Landeros, a 67-year-old female, is here for a follow-up evaluation of hypertension. She has been monitoring her blood pressure at home for the past 8 weeks using a wrist cuff and reports elevated readings in the evenings. She has increased her water intake. She has been consistently using Ocuvite and started taking magnesium on the advice of a nurse acquaintance when she experienced leg pain. This was during her time with Dr. Salvador and continued at another clinic with nurse practitioners. She takes biotin for her rapidly growing but thinning hair, and vitamin B6, which she notes has caused hand swelling. She also takes vitamin D and is considering reducing the dose. She uses a topical treatment for facial skin issues triggered by wearing glasses, face masks, or exposure to dirt while working outdoors. She finds this treatment effective and purchases it approximately once a year. She recently ordered the treatment and was informed that the provider had contacted the medical office for approval, but she received a message indicating that the provider had not yet received a response. She primarily consumes decaffeinated coffee and water, and her alcohol intake is minimal, with occasional wine consumption a few times per year. She drinks sugar-free soda about once a month or less. She noted a change in her taste perception, particularly for coffee, following a mild bout of COVID-19 2 years ago. Both she and her partner experienced similar symptoms, including altered taste and smell. She has had to adjust her diet to accommodate changes in her taste perception. She and her partner experienced COVID-19 lasting approximately 5 days, with symptoms of severe headaches and fatigue, but without cough or sore throat symptoms. She has chosen not to receive vaccinations due to concerns about potential allergic reactions. She has a history of allergies, particularly to bee and wasp stings, and carries an EpiPen for emergency treatment. She also experiences severe reactions to mosquito bites. The patient has an EpiPen on hand but has not had to use it yet, despite experiencing severe allergic reactions. She reported that she does not experience any swelling in her feet. She expressed uncertainty about her fluid intake, particularly water, and noted that she often consumes several servings of water in the evening. She has been drinking coffee since she was in sixth grade. She has been experiencing night sweats again, which she hasn't had for a while. She mentioned that her prefers a warmer temperature in the house, which could be contributing to her night sweats. She had a negative experience at another medical office after leaving Dr. Salvador's practice. This was around the time when the Covid pandemic hit, and she felt judged and dismissed at the new office due to her size. Her blood pressure, as measured by me, is 150/101 mmHg, while the nurse recorded it as 140/88 mmHg. Her blood pressure taken by me is 150/101 mmHg while it measured 140/88 mmHg taken by the nurse. Physical Exam Vitals & Measurements HR: 77(Peripheral) BP: 140/88 SpO2: 99% HT: 67 in HT: 171 cm WT: 98.8 kg WT: 217.36 lb BMI: 33.79 General: alert, no acute distress Cardiovascular: regular rate and rhythm, normal peripheral perfusion Respiratory: Lungs CTA, respirations non labored Extremities: no deformity, no trauma Neurological: oriented x 4, LOC appropriate for age, CN II-XII intact, motor strength equal & normal bilaterally, speech normal Assessment/Plan 1. Hypothyroidism, unspecified type (E03.9: Hypothyroidism, unspecified) Patient is doing well with the medication. We will continue as before. 2. History of vitamin D deficiency (Z86.39: Personal history of other endocrine, nutritional and metabolic disease) This is resolved as the labs have come back to normal. We reviewed the patient's supplemental medication and good with those medications. None of them interact or cause any side effects at this time. We will continue to monitor. 3. White coat syndrome with hypertension (I10: Essential (primary) hypertension) Patient's blood pressure is stable. I showed the patient that her wrist cuff is not a good measurement of blood pressure and expressed how to take the blood pressure and how to relax and be able to get her blood pressure at goal. We will go ahead and call hydrochlorothiazide 12.5 mg in to see if this will help with some of her more elevated times. Total time spent preparing the chart, conducting the encounter with the patient and family and time spent documenting, reviewing, and ordering tests was 40 minutes. Portions of this record may have been created with voice recognition artificial intelligence software, specifically [employer]on[employer], F[employer] and or [employer]. Substitutions may have occurred due to the inh (more content not included)... Normal [facility] Comment on above: Result Comment: Elec tronically Signed By: Johnie Grider MD\.br\Date and Time Signed: 05/02/23 13:14 EST\.br\Electronically Co-Signed By: Latonya Gould\.br\Date and Time Co-Signed: 04/28/23 16:29 EST Ambulatory Visit Summaryon 0 04-28-2023 Ambulatory Visit Summary LORAINE LANDEROS :1955 Visit Date:04/28/2023 Ambulatory Visit Instructions Your Care Team Attending Physician - Johnie Grider MD Primary Care Physician - Johnie Grider MD. This Is Your Medications List Misc Prescription (dapsone 5% gel) Turmeric biotin (biotin 1000 mcg oral tablet) calcitriol topical (calcitriol topical 3 mcg/g ointment) cetirizine (Zyrtec) cholecalciferol (Vitamin D3 5000 intl units oral capsule) epinephrine (EpiPen 2-Beau 0.3 mg injectable kit) lysine (lysine 500 mg oral tablet) multivitamin with minerals (Ocuvite) pyridoxine (Vitamin B6 100 mg Tab) thyroid desiccated ([place] Thyroid 60 mg Tab) Procedures Performed Bilateral tubal ligation, D&C - Dilatation and curettage. Discharge Vitals Heart Rate (Peripheral) 77 Blood Pressure 140/88 Height 171 cm Height 67 in Weight 98.8 kg Weight 217.36 lb BMI 33.79 What to do next Scheduled Follow-Up Appointments Tuesday 9:15 AM EDT With: Cheo GUERRERO, Johnie Howe Where: [facility] [place] Normal [address] [place] [address]- \.br\ Medications\.br\ What How Much When Instructions\.br\ Unchanged biotin (biotin 1000 mcg oral tablet) 1 Tablets By Mouth Every day\.br\ Unchanged calcitriol topical (calcitriol topical 3 mcg/ g ointment) See instructions Apply BID to affected areas as directed \.br\ Unchanged cetirizine (Zyrtec)\.br\ Unchanged cholecalciferol (Vitamin D3 5000 intl units oral capsule) 1 Capsules By Mouth Every day with food \.br\ Unchanged epinephrine (EpiPen 2-Beau 0.3 mg injectable kit) 0.3 Milligram Intramuscular Once prn \.br\ Unchanged lysine (lysine 500 mg oral tablet) 1 Tablets By Mouth Every day\.br\ Unchanged Misc Prescription (dapsone 5% gel) See instructions apply to affected area daily \.br\ Unchanged multivitamin with minerals (Ocuvite)\.br\ Unchanged pyridoxine (Vitamin B6 100 mg Tab)\.br\ Unchanged thyroid desiccated ([place] Thyroid 60 mg Tab) 1 Tablets By Mouth Every day\.br\ Unchanged Turmeric By Mouth Every day\.br\ Allergies\.br\ Bee Stings (Itching, Swelling)\.br\ Problems\.br\ Ongoing - Any problem that you are currently receiving treatment for.\.br\ Bee sting allergy\.br\ BMI 33.0-33.9,adult\. br\ Breast cancer screening\.br\ Cervical cancer screening\.br\ History of non anemic vitamin B12 deficiency\.br\ History of vitamin D deficiency\.br\ Hypothyroidism, unspecified type\.br\ Non-compliance\.b r\ Obesity\.br\ Osteoarthritis\.b r\ Parasomnia\.br\ Screen for colon cancer\.br\ Screening for cardiovascular condition\.br\ Spider angioma\.br\ White coat syndrome with hypertension\.br\ Patient Survey\.br\ You may receive a survey via text or e-mail asking about your office visit. Please share your experience with us by completing your survey. We appreciate your feedback and thank you for choosing us for your care.\.br\ \.br\ [facility] Office/Clini c Sebastienon 04-13-2023 [facility] Medicine Office/Clinic Note Chief Complaint Initial Medicare Wellness Visit History of Present Illness I was in the office and available for consultation and to provide direct supervision at the time of this visit. I have provided supervision of the care team and have reviewed this chart and office note and agree with the plan of care. Covid-19, MERS, Ebola Screen *Contact With Person With Highly Contagious Disease Like Ebola/MERS/COVID-19 AND Have One or More of the Symptoms Below : No *Travel to a Country With Wide-Spread Ebola/MERS/COVID-19 in the Past 21 Days AND Have One or More of the Symptoms Below : No Patient Reported Covid-19 Testing : No *Verify Droplet, Contact Precautions for Ebola (Reference for CDC) : N/A *Verify Airborne, Droplet Precautions for MERS/COVID-19 : N/A Fantasma Johnson R 04/07/2023 14:43 EST Medicare/Medicaid Summary Waist Measurement : 99 cm(Converted to: 39 in) Systolic Blood Pressure : 148 mmHg (HI) Diastolic Blood Pressure : 100 mmHg (HI) Blood Pressure Location : Left arm Blood Pressure Position : Sitting O2 Sat Resting/Exertion Alpha : Resting Peripheral Pulse Rate : 68 bpm SpO2 : 98 % Chief Complaint : Initial Medicare Wellness Visit Fantasma Johnson R 04/07/2023 15:56 EST Patient Counseled : Nutrition, Physical activity Height/Length Measured : 171 cm(Converted to: 5 ft 7 in, 67.32 in) Weight Measured : 99.2 kg(Converted to: 218 lb 11 Ounces, 218.699 lb) Body Mass Index Measured : 33.92 kg/m2 Height in Inches : 67 in Weight in Pounds : 218.24 lb Pain Present : No actual or suspected pain Fantasma Johnson 04/07/2023 14:43 EST Hearing and Vision Screening FT FT Whisper Test Comments : no issues or concerns Vision Screen Comments : wears contacts, follows with Fantasma Lyman 04/07/2023 14:43 EST Advance Directive FT Advance Directive : No Patient Wishes to Receive Further Information on Advance Directives : No Organ Donation Consent : Yes Fantasma Johnson - 04/07/2023 14:43 EST Procedures / Surgeries FT - Procedure History (As Of: 04/07/2023 16:00:35 EST) Anesthesia Minutes: 0 ; Procedure Name: Bilateral tubal ligation ; Procedure Minutes: 0 ; Last Reviewed Dt/Tm: 04/07/2023 15:58:07 EST Anesthesia Minutes: 0 ; Procedure Name: D&C - Dilatation and curettage ; Procedure Minutes: 0 ; Comments: 04/07/2023 14:47 EST - Fantasma Johnson ectopic ; Last Reviewed Dt/Tm: 04/07/2023 15:58:07 EST Family History Family History (As Of: 04/07/2023 16:00:35 EST) Father: Relation: Father ; Gender: Male ; Nomenclature: Diabetes mellitus type 2 ; Value: Positive Mother: Relation: Mother ; Gender: Female ; Nomenclature: Hypertension ; Value: Positive Nomenclature: Stroke ; Value: Positive Nomenclature: Anxiety ; Value: Positive Nomenclature: Depression ; Value: Positive Brother: Relation: Brother ; Gender: Male ; Nomenclature: Diabetes mellitus type 2 ; Value: Positive Medicare/Medicaid Social History FT Social History (As Of: 04/07/2023 16:00:35 EST) Alcohol: Denies Alcohol Use Household alcohol concerns: No. (Last Updated: 08/26/2022 11:38:01 EDT by Selin Parker MA) Tobacco: Denies Tobacco Use Never (less than 100 in lifetime) Tobacco Use:. Never Smokeless Tobacco Use:. Household tobacco concerns: No. Comments: 04/07/2023 15:58 - Fantasma Johnson: denies (Last Updated: 04/07/2023 15:58:25 EST by Fantasma Johnson) Substance Abuse: Denies Substance Abuse Household substance abuse concerns: No. (Last Updated: 08/26/2022 11:38:13 EDT by Selin Parker MA) Health Risk Assessment FT HRA little interest or pleasure? : No HRA down, depressed, or hopeless? : No Hazards in your house? : No Fall Risk Past Year : Yes (Comment: [place] , [place] injury [Fantasma Johnson - 04/07/2023 15:56 EST] ) Worried About Falling : No Use a Cane or Walker? : No Someone Helps You in the Morning : No Fallen or felt dizzy standing up? : No Assistance with personal care? : No Trouble taking meds correctly? : No HRA Pain Present : No Able to walk without help? : Yes Ability to shop w/out help : Yes Prepare your own meals? : Yes Housework without help? : Yes Handle money without help : Yes Track own medications without help? : Yes Overall mood for past four weeks : Very well General health rating : Excellent Someone avail. to help if needed? : Yes, as much as I wanted Phys. & emotional health limit social act? : Not at all Fantasma Johnson - 04/07/2023 15:56 EST Misc Health Risks Grid Sexual problems : Never Trouble eating well : Never Teeth or denture problems : Never Problems using the telephone : Never Fantasma Johnson - 04/07/2023 15:56 EST Confident you control health problems : Very confident Difficulties driving your car? : No Seatbelts : I always fasten my seat belt Fantasma Johnson R - 04/07/2023 15:56 EST Depression Screening Little I (more content not included)... [facility] Comment on above: Result Comment: Elec tronically Signed By: Johnie Grider MD\.br\Date and Time Signed: 04/13/23 16:43 EST\.br\Electronically Co-Signed By: Fantasma Johnson\.br\Date and Time Co-Signed: 04/07/23 16:20 EST [place] 04-08-2023 Screens [id number]# 1.00TIFF [facility] Ambulatory Visit Summaryon 1 06-08-2022 Ambulatory Visit Summary LINDALORAINE Jak :1955 Visit Date:04/07/2023 Ambulatory Visit Instructions Your Diagnosis Annual visit for general adult medical examination with abnormal findings Encounter for screening for other disorder Screening for hepatitis C declined, Screening mammography declined, Screening declined by patient Hypothyroid BMI 33.0-33.9,adult Class 1 obesity due to excess calories in adult Your Care Team Attending Physician - Johnie Grider MD Primary Care Physician - Johnie Grider MD This Is Your Medications List Misc Prescription (dapsone 5% gel) Turmeric biotin (biotin 1000 mcg oral tablet) calcitriol topical (calcitriol topical 3 mcg/g ointment) cetirizine (Zyrtec) cholecalciferol (Vitamin D3 5000 intl units oral capsule) epinephrine (EpiPen 2-Beau 0.3 mg injectable kit) lysine (lysine 500 mg oral tablet) multivitamin with minerals (Ocuvite) pyridoxine (Vitamin B6 100 mg Tab) thyroid desiccated ([place] Thyroid 60 mg Tab) Procedures Performed Bilateral tubal ligation, D&C - Dilatation and curettage. Discharge Vitals Heart Rate (Peripheral) 68 Blood Pressure 140/98 Height 67 in Height 171 cm Weight 218.24 lb Weight 99.2 kg BMI 33.92 What to do next Scheduled Follow-Up Appointments Tuesday 9:15 AM EDT With: Johnie Grider MD Where: [facility] Normal [address] [place] [address] \.br\ Medications\.br\ What How Much When Instructions\.br\ Unchanged biotin (biotin 1000 mcg oral tablet) 1 Tablets By Mouth Every day\.br\ Unchanged calcitriol topical (calcitriol topical 3 mcg/ g ointment) See instructions Apply BID to affected areas as directed \.br\ Unchanged cetirizine (Zyrtec)\.br\ Unchanged cholecalciferol (Vitamin D3 5000 intl units oral capsule) 1 Capsules By Mouth Every day with food \.br\ Unchanged epinephrine (EpiPen 2-Beau 0.3 mg injectable kit) 0.3 Milligram Intramuscular Once prn \.br\ Unchanged lysine (lysine 500 mg oral tablet) 1 Tablets By Mouth Every day\.br\ Unchanged Misc Prescription (dapsone 5% gel) See instructions apply to affected area daily \.br\ Unchanged multivitamin with minerals (Ocuvite)\.br\ Unchanged pyridoxine (Vitamin B6 100 mg Tab)\.br\ Unchanged thyroid desiccated ([place] Thyroid 60 mg Tab) 1 Tablets By Mouth Every day\.br\ Unchanged Turmeric By Mouth Every day\.br\ Allergies\.br\ Bee Stings (Itching, Swelling)\.br\ Problems\.br\ Ongoing - Any problem that you are currently receiving treatment for.\.br\ Bee sting allergy\.br\ BMI 33.0-33.9,adult\. br\ Breast cancer screening\.br\ Cervical cancer screening\.br\ History of non anemic vitamin B12 deficiency\.br\ History of vitamin D deficiency\.br\ Hypothyroidism, unspecified type\.br\ Non-compliance\.b r\ Obesity\.br\ Osteoarthritis\.b r\ Parasomnia\.br\ Screen for colon cancer\.br\ Screening for cardiovascular condition\.br\ Spider angioma\.br\ White coat syndrome with hypertension\.br\ Patient Survey\.br\ You may receive a survey via text or e-mail asking about your office visit. Please share your experience with us by completing your survey. We appreciate your feedback and thank you for choosing us for your care.\.br\ Education Materials\.br\ Breast Self-Awareness\.b r\ Breast self-awareness means being familiar with how your breasts look and feel. It involves checking your breasts regularly and telling your health care provider about any changes.\.br\ Practicing breast self-awareness helps to maintain breast health. Sometimes, changes are not harmful (are benign). Other times, a change in your breasts can be a sign of a serious medical problem. Being familiar with the look and feel of your breasts can help you catch a breast problem while it is still small and can be treated. You should do breast self-exams even if you have breast implants.\.br\ What you need:\.br\ ? \.br\ A mirror.\.br\ ? \.br\ A well-lit room.\.br\ ? \.br\ A pillow or other soft object.\.br\ How to do a breast self-exam\.br\ A breast self-exam is one way to learn what is normal for your breasts and whether your breasts are changing. To do a breast self-exam:\.br\ Look for changes\.br\ \.br\ 1. \.br\ Remove all the clothing above your waist.\.br\ 2. \.br\ stamping operator front of a mirror in a room with good lighting.\.br\ 3. \.br\ Put your hands down at your sides.\.br\ 4. \.br\ Compare your breasts in the mirror. Look for differences between them (asymmetry), such as:\.br\ ? \.br\ Differences in shape.\.br\ ? \.br\ Differences in size.\.br\ ? \.br\ Puckers, dips, and bumps in one breast and not the other.\.br\ 5. \.br\ Look at each breast for changes in the skin, such as:\.br\ ? \.br\ Redness.\.br\ ? \.br\ Scaly areas.\.br\ ? \.br\ Skin thickening.\.br\ ? \.br\ Dimpling.\.br\ ? \.br\ Open sores (ulcers).\.br\ 6. \.br\ Look for changes in your nipples, such as:\.br\ ? \.br\ Discharge.\.br\ ? \.br\ Bleeding.\.br\ ? \.br\ Dimpling.\.br\ ? \.br\ Redness.\.br\ ? \.br\ A nipple that looks pushed in (retracted), or that has changed position.\.br\ Feel for changes\.br\ Carefully feel your breasts for lumps and changes. It is best to do this self-exam while lying down. Follow these steps to feel each breast:\.br\ 1. \.br\ Place a pillow under the shoulder of one side of your body.\.br\ 2. \.br\ Place the arm of that side of your body behind your head.\.br\ 3. \.br\ Feel the breast of that side of your body using the hand of the opposite arm. To do this:\.br\ ? \.br\ Start in the nipple area and use the pads of your three middle fingers to make ?-inch (2 cm) overlapping circles.\.br\ ? \.br\ Use light, medium, and then firm pressure as you feel your breast, gently covering the entire breast area and armpit.\.br\ 4. \.br\ Continue the overlapping circles, moving downward over the breast until you feel your ribs below your breast.\.br\ 5. \.br\ Then, make circles with your fingers going upward until you reach your collarbone.\.br\ 6. \.br\ Next, make circles by moving outward across your breast and into your armpit area.\.br\ 7. \.br\ Squeeze the nipple. Check for discharge and lumps.\.br\ 8. \.br\ Repeat steps 1?7 to check your other breast.\.br\ 9. \.br\ Sit or integrity analyst the tub or shower.\.br\ 10. \.br\ With soapy water on your skin, feel each breast the same way you did when you were lying down.\.br\ Write down what you find\.br\ Writing down what you find can help you remember what to discuss with your health care provider. Write down:\.br\ ? \.br\ What is normal for each breast.\.br\ ? \.br\ Any changes that you find in each breast. These include:\.br\ ? \.br\ The kind of changes you find.\.br\ ? \.br\ Any pain or tenderness.\.br\ ? \.br\ Size and location of any lumps.\.br\ ? \.br\ Where you are in your menstrual cycle, if you are still getting your menstrual period (menstruating).\. br\ General tips\.br\ ? \.br\ If you are , the best time to examine your breasts is after a feeding or after using a breast pump.\.br\ ? \.br\ If you menstruate, the best time to examine your breasts is 5?7 days after your menstrual period. Breasts are generally lumpier during menstrual periods, and it may be more difficult to notice changes.\.br\ ? \.br\ With time and practice, you will become more familiar with the differences in your breasts and more comfortable with the exam.\.br\ Contact a health care provider if:\.br\ ? \.br\ You see a change in the shape or size of your breasts or nipples.\.br\ ? \.br\ You see a change in the skin of your breast or nipples, such as a reddened or scaly area.\.br\ ? \.br\ You have unusual discharge from your nipples.\.br\ ? \.br\ You find a new lump or thick area.\.br\ ? \.br\ You have breast pain.\.br\ ? \.br\ You have any concerns about your breast health.\.br\ Summary\.br\ ? \.br\ Breast self-awareness includes looking for physical changes in your breasts and feeling for any changes within your breasts.\.br\ ? \.br\ Breast self-awareness should be done in front of a mirror in a well-lit room.\.br\ ? \.br\ If you menstruate, the best time to examine your breasts is 5?7 days after your menstrual period.\.br\ ? \.br\ Tell your health care provider about any changes you notice in your breasts. Changes include changes in size, changes on the skin, pain or tenderness, or unusual fluid from your nipples.\.br\ This information is not intended to replace advice given to you by your health care provider. Make sure you discuss any questions you have with your health care provider.\.br\ Document Revised: 03/02/2022 Document Reviewed: 02/11/2022 [facility] Patient Educationon 04-07-20 23 Patient Education Endocrinology Hypothyroidism Hypothyroidism is when the thyroid gland does not make enough of certain hormones. This is called an underactive thyroid. The thyroid gland is a small gland located in the lower front part of the neck, just in front of the windpipe (trachea). This gland makes hormones that help control how the body uses food for energy (metabolism) as well as how the heart and brain function. These hormones also play a role in keeping your bones strong. When the thyroid is underactive, it produces too little of the hormones thyroxine (T4) and triiodothyronine (T3). What are the causes? This condition may be caused by: ? Zulma's disease. This is a disease in which the body's disease-fighting system (immune system) attacks the thyroid gland. This is the most common cause. ? Viral infections. ? . ? Certain medicines. ? defects. ? Problems with a gland in the center of the brain (pituitary gland). ? Lack of enough iodine in the diet. Other causes may include: ? Past radiation treatments to the head or neck for cancer. ? Past treatment with radioactive iodine. ? Past exposure to radiation in the environment. ? Past surgical removal of part or all of the thyroid. What increases the risk? You are more likely to develop this condition if: ? You are female. ? You have a family history of thyroid conditions. ? You use a medicine called lithium. ? You take medicines that affect the immune system (immunosuppressants). What are the signs or symptoms? Common symptoms of this condition include: ? Not being able to tolerate cold. ? Feeling as though you have no energy (lethargy). ? Lack of appetite. ? Constipation. ? Sadness or depression. ? Weight gain that is not explained by a change in diet or exercise habits. ? Menstrual irregularity. ? Dry skin, coarse hair, or brittle nails. Other symptoms may include: ? Muscle pain. ? Slowing of thought processes. ? Poor memory. How is this diagnosed? This condition may be diagnosed based on: ? Your symptoms, your medical history, and a physical exam. ? Blood tests. You may also have imaging tests, such as an ultrasound or MRI. How is this treated? This condition is treated with medicine that replaces the thyroid hormones that your body does not make. After you begin treatment, it may take several weeks for symptoms to go away. Follow these instructions at home: ? Take ojpl-rjr-elighzr and prescription medicines only as told by your health care provider. ? If you start taking any new medicines, tell your health care provider. ? Keep all follow-up visits as told by your health care provider. This is important. ? As your condition improves, your dosage of thyroid hormone medicine may change. ? You will need to have blood tests regularly so that your health care provider can monitor your condition. Contact a health care provider if: ? Your symptoms do not get better with treatment. ? You are taking thyroid hormone replacement medicine and you: ? Sweat a lot. ? Have tremors. ? Feel anxious. ? Lose weight rapidly. ? Cannot tolerate heat. ? Have emotional swings. ? Have diarrhea. ? Feel weak. Get help right away if: ? You have chest pain. ? You have an irregular heartbeat. ? You have a rapid heartbeat. ? You have difficulty breathing. These symptoms may be an emergency. Get help right away. Call 911. ? Do not wait to see if the symptoms will go away. ? Do not drive yourself to the hospital. Summary ? Hypothyroidism is when the thyroid gland does not make enough of certain hormones (it is underactive). ? When the thyroid is underactive, it produces too little of the hormones thyroxine (T4) and triiodothyronine (T3). ? The most common cause is Zulma's disease, a disease in which the body's disease-fighting system (immune system) attacks the thyroid gland. The condition can also be caused by viral infections, medicine, , or past radiation treatment to the head or neck. ? Symptoms may include weight gain, dry skin, constipation, feeling as though you do not have energy, and not being able to tolerate cold. ? This condition is treated with medicine to replace the thyroid hormones that your body does not make. This information is not intended to replace advice given to you by your health care provider. Make sure you discuss any questions you have with your health care provider. Document Revised: 04/13/2022 Document Reviewed: 04/13/2022 [employer] Patient Education ? 2022 [email or web address]. Nutrition DASH Eating Plan DASH stands for Dietary Approaches to Stop Hypertension. The DASH eating plan is a healthy eating plan that has been shown to: ? Reduce high blood pressure (hypertension). ? Reduce your risk for type 2 diabetes, heart disease, and stroke. ? Help with weight loss. What are tips for following this plan? Reading food labels ? Check food labels (more content not included)... Normal [facility] T3 Freeon 03-16-2023 Free T3 [Mass/Vol] 3.9 pg/mL Invalid Interpretation Code 2.0-4.4 [facility] Comment on above: Result Comment: Perf ormed at: [facility] [address] [id number] PhD Bernadette Vitale Performed By: #### 1 [id number] ####[facility] [id number] [place] [address] Ambulatory Visit Summaryon 05-14-2022 Ambulatory Visit Summary LORAINE LANDEROS :1955 Visit Date:03/14/2023 Ambulatory Visit Instructions Your Diagnosis History of non anemic vitamin B12 deficiency Hypothyroidism, unspecified type White coat syndrome with hypertension Spider angioma BMI 33.0-33.9,adult Class 1 obesity due to excess calories in adult Nonsmoker Your Care Team Attending Physician - Johnie Grider MD Primary Care Physician - Johnie Grider MD This Is Your Medications List Misc Prescription (dapsone 5% gel) biotin (biotin 1000 mcg oral tablet) calcitriol topical (calcitriol topical 3 mcg/g ointment) cetirizine (Zyrtec) cholecalciferol (Vitamin D3 5000 intl units oral capsule) epinephrine (EpiPen 2-Beau 0.3 mg injectable kit) lysine (lysine 500 mg oral tablet) multivitamin with minerals (Ocuvite) pyridoxine (Vitamin B6 100 mg Tab) thyroid desiccated ([place] Thyroid 60 mg Tab) Procedures Performed Bilateral tubal ligation, D&C - Dilatation and curettage. Discharge Vitals Temperature (Oral) 36.6 ?C Heart Rate (Peripheral) 60 Respiratory Rate 16 Blood Pressure 116/66 Height 170.2 cm Height 67 in Weight 98.0 kg Weight 215.6 lb BMI 33.83 What to do next Scheduled Follow-Up Appointments 2022 2:00 PM EST With: Where: [facility] Invalid Interpretation Code [address] [place] [address]- \.br\ Someone Will Contact You Regarding These Appointments\.br\ [facility] External Ambulatory Referral, Endocrinology, 03/14/23 10:06:00 EST, History of non anemic vitamin B12 deficiency [facility] CHEMISTRYOrdered By: SYSTEM SYSTEM on 03-14-2023 TSH Qn 0.88 m[IU]/L Normal 0.34 - 5.60 mcIU/mL [facility]ini c Noteon 03-14-2023 Family Medicine Office/Clinic Note HPI Staff Loraine is a 67 year old female presenting for follow up after labs thyroid, vit B12 and Vit D Pt says due for labs today Patient is here for follow up on Thyroid Disease. Do you have any of the following symptoms? Change in energy level? no Weight change? no Heat/cold intolerance? no Hair/skin/nail changes? yes same with losing hair Change in bowels? no Last TSH: TSH: 0.77 mcIU/mL (01/17/23 10:31:00 flu: refused questions/concerns: has some changes in her feet area wonders if age related History of Present Illness - See staff HPI. Review of Systems PHQ Score Initial Depression Screen Score: 0 SCORE Physical Exam Vitals & Measurements T: 36.6 ?C(Oral) HR: 60(Peripheral) RR: 16 BP: 116/66 SpO2: 98% HT: 67 in HT: 170.2 cm WT: 98.0 kg WT: 215.6 lb BMI: 33.83 General: alert, no acute distress ENMT: oral mucosa moist, Cardiovascular: regular rate and rhythm, normal peripheral perfusion Respiratory: Lungs CTA, respirations non labored Extremities: no deformity, no trauma, Spider angiomas noted on the ankle. Neurological: oriented x 4, LOC appropriate for age, CN II-XII intact, motor strength equal & normal bilaterally, speech normal Abdomen: Soft, Nontender, Non-distended, + BS Assessment/Plan 1. History of non anemic vitamin B12 deficiency (Z86.39: Personal history of other endocrine, nutritional and metabolic disease) - No issues at this time. Ordered: Body Mass Index (BMI) documented 3008F Current tobacco non-user 1036F Depression Screening Negative 3352F [facility] External Ambulatory Referral Influenza immunization status assessed 1030F Most recent diastolic blood pressure <80 mm Hg 3078F Patient screen for fall risk: no falls in last year or 1 fall with no injury in last year 1101F Systolic BP <130 mm Hg (Most Recent) 3074F T3 Free TSH With T4fr Reflex 2. Hypothyroidism, unspecified type (E03.9: Hypothyroidism, unspecified) - T4 was abnormal. - Will recheck today. - Will send to Endo to help us. Ordered: Body Mass Index (BMI) documented 3008F Current tobacco non-user 1036F Depression Screening Negative 3352F [facility] External Ambulatory Referral Influenza immunization status assessed 1030F Most recent diastolic blood pressure <80 mm Hg 3078F Patient screen for fall risk: no falls in last year or 1 fall with no injury in last year 1101F Systolic BP <130 mm Hg (Most Recent) 3074F T3 Free TSH With T4fr Reflex 3. White coat syndrome with hypertension (I10: Essential (primary) hypertension) - Resolved today. Ordered: Body Mass Index (BMI) documented 3008F Current tobacco non-user 1036F Depression Screening Negative 3352F [facility] External Ambulatory Referral Influenza immunization status assessed 1030F Most recent diastolic blood pressure <80 mm Hg 3078F Patient screen for fall risk: no falls in last year or 1 fall with no injury in last year 1101F Systolic BP <130 mm Hg (Most Recent) 3074F T3 Free TSH With T4fr Reflex 4. Spider angioma (I78.1: Nevus, non-neoplastic) - Monitor. - NO issues at this time Ordered: [facility] External Ambulatory Referral T3 Free TSH With T4fr Reflex 5. BMI 33.0-33.9,adult (Z68.33: Body mass index [BMI] 33.0-33.9, adult) - BMI education uploaded Ordered: Body Mass Index (BMI) documented 3008F Current tobacco non-user 1036F Depression Screening Negative 3352F [facility] External Ambulatory Referral Influenza immunization status assessed 1030F Most recent diastolic blood pressure <80 mm Hg 3078F Patient screen for fall risk: no falls in last year or 1 fall with no injury in last year 1101F Systolic BP <130 mm Hg (Most Recent) 3074F T3 Free TSH With T4fr Reflex 6. Class 1 obesity due to excess calories in adult (E66.09: Other obesity due to excess calories) - Diet and exercise advised Ordered: Body Mass Index (BMI) documented 3008F Current tobacco non-user 1036F Depression Screening Negative 3352F Influenza immunization status assessed 1030F Most recent diastolic blood pressure <80 mm Hg 3078F Patient screen for fall risk: no falls in last year or 1 fall with no injury in last year 1101F Systolic BP <130 mm Hg (Most Recent) 3074F T3 Free TSH With T4fr Reflex 7. Nonsmoker (Z78.9: Other specified health status) - Please continue to not smoke Ordered: Body Mass Index (BMI) documented 3008F Current tobacco non-user 1036F Depression Screening Negative 3352F Influenza immunization status assessed 1030F Most recent diastolic blood pressure <80 mm Hg 3078F Patient screen for fall risk: no falls in last year or 1 fall with no injury in last year 1101F Systolic BP <130 mm Hg (Most Recent) 3074F T3 Free TSH With T4fr Reflex Follow-up No qualifying data available Problem List/Past Medical History Ongoing Bee sting allergy BMI 33.0-33.9,adult Breast cancer screening Cervical cancer screening History of non anemic vitamin B12 deficiency History of vitamin D defi (more content not included)... Normal [facility] Comment on above: Result Comment: Elec tronically Signed By: Cheo GUERRERO, Johnie Howe\.br\Date and Time Signed: 03/14/23 10:14 EST Physician Referralon 023 Physician Referral [id number]# 1.00TIFF Normal [facility] TSH With T4fr Reflexon 03-14 TSH Qn 0.88 m[IU]/L Normal 0.34-5.60 [facility] Comment on above: Performed By: #### 1 [id number] ####[facility] [id number] [place] [address] T3 Freeon 01-19-2023 Free T3 [Mass/Vol] 4.7 pg/mL High 2.0-4.4 [facility] Comment on above: Result Comment: Perf ormed at: [facility] [address] [id number] PhD Bernadette Vitale Performed By: #### 2 [id number] ####[facility] [address] [place] [address] Ambulatory Visit Summaryon 0 01-17-2023 Ambulatory Visit Summary LORAINE LANDEROS :1955 Visit Date:01/17/2023 Ambulatory Visit Instructions Your Diagnosis Hypothyroidism, unspecified type History of vitamin D deficiency, History of non anemic vitamin B12 deficiency Obesity Osteoarthritis Your Care Team Attending Physician - Johnie Grider MD Primary Care Physician - Johnie Grider MD This Is Your Medications List Contact prescribing physician if questions or concerns Misc Prescription (dapsone 5% gel) biotin (biotin 1000 mcg oral tablet) calcitriol topical (calcitriol topical 3 mcg/g ointment) cetirizine (Zyrtec) cholecalciferol (Vitamin D3 5000 intl units oral capsule) epinephrine (EpiPen 2-Beau 0.3 mg injectable kit) lysine (lysine 500 mg oral tablet) multivitamin with minerals (Ocuvite) pyridoxine (Vitamin B6 100 mg Tab) thyroid desiccated ([place] Thyroid 90 mg Tab) Procedures Performed Bilateral tubal ligation, D&C - Dilatation and curettage. Discharge Vitals Temperature (Oral) 36.9 ?C Heart Rate (Peripheral) 64 Respiratory Rate 14 Blood Pressure 144/86 Height 170.2 cm Height 67 in Weight 98.6 kg Weight 216.92 lb BMI 34.04 What to do next Scheduled Follow-Up Appointments Tuesday 3:30 PM EST With: Where: [facility] Normal [address] [phone]- \.br\ Medications\.br\ What How Much When Instructions\.br\ Unchanged biotin (biotin 1000 mcg oral tablet) 1 Tablets By Mouth Every day Contact prescribing physician if questions or concerns \.br\ Unchanged calcitriol topical (calcitriol topical 3 mcg/ g ointment) See instructions Apply BID to affected areas as directed Contact prescribing physician if questions or concerns \.br\ Unchanged cetirizine (Zyrtec) Contact prescribing physician if questions or concerns \.br\ Unchanged cholecalciferol (Vitamin D3 5000 intl units oral capsule) 1 Capsules By Mouth Every day with food Contact prescribing physician if questions or concerns \.br\ Unchanged epinephrine (EpiPen 2-Beau 0.3 mg injectable kit) 0.3 Milligram Intramuscular Once prn Contact prescribing physician if questions or concerns \.br\ Unchanged lysine (lysine 500 mg oral tablet) 1 Tablets By Mouth Every day Contact prescribing physician if questions or concerns \.br\ Unchanged Misc Prescription (dapsone 5% gel) See instructions apply to affected area daily Contact prescribing physician if questions or concerns \.br\ Unchanged multivitamin with minerals (Ocuvite) Contact prescribing physician if questions or concerns \.br\ Unchanged pyridoxine (Vitamin B6 100 mg Tab) Contact prescribing physician if questions or concerns \.br\ Unchanged thyroid desiccated ([place] Thyroid 90 mg Tab) 1 Tablets By Mouth Every day Contact prescribing physician if questions or concerns \.br\ Allergies\.br\ Bee Stings (Itching, Swelling)\.br\ Problems\.br\ Ongoing - Any problem that you are currently receiving treatment for.\.br\ Bee sting allergy\.br\ BMI 33.0-33.9,adult\. br\ Breast cancer screening\.br\ Cervical cancer screening\.br\ History of non anemic vitamin B12 deficiency\.br\ History of vitamin D deficiency\.br\ Hypothyroidism, unspecified type\.br\ Non-compliance\.b r\ Obesity\.br\ Osteoarthritis\.b r\ Parasomnia\.br\ Screen for colon cancer\.br\ Screening for cardiovascular condition\.br\ White coat syndrome with hypertension\.br\ \.br\ [facility] BMPon 01-17-2023 Anion gap [Moles/Vol] 14 mmol/L Normal 6-16 [facility] Comment on above: Performed By: #### 2 [id number], [id number], 8661849, 45081779, [id number], 6426718, 5722253 ####[facility] [address] [place] [address] Calcium [Mass/Vol] 10.1 mg/dL Normal 8.9-11.1 [facility] Comment on above: Performed By: #### 2 918519, 52974696, 9629736, 09849528, [id number], 1806250, 5939706 ####[facility] [address] [place] [address] Chloride [Moles/Vol] 105 mmol/L Normal 101-111 [facility] Comment on above: Performed By: #### 2 591169, 32331873, 1541414, 86517988, [id number], 3889389, 9887468 ####[facility] [address] [place] [address] CO2 [Moles/Vol] 27 mmol/L Normal 21-31 [facility] Comment on above: Performed By: #### 2 061432, [id number], 8521803, 35218414, [id number], 5926745, 3782085 ####[facility] [address] [place] [address] Creatinine [Mass/Vol] 0.7 mg/dL Normal 0.5-1.3 [facility] Comment on above: Performed By: #### 2 390401, 92857938, 1772027, 71314043, [id number], 9166400, 2162926 ####[facility] [address] [place] [address] Glucose [Mass/Vol] 93 mg/dL Normal 55-199 [facility] Comment on above: Result Comment: If t his glucose result represents a fasting glucose, interpretation should refer to the following reference range: 55-99 mg/dL Performed By: #### 2 296126, [id number], 1165471, 65392398, [id number], 5173463, 4549278 ####[facility] [address] [place] [address] Potassium [Moles/Vol] 4.0 mmol/L Normal 3.5-5.3 [facility] Comment on above: Performed By: #### 2 350628, 52224319, 2643947, 16871292, 976409539, 4706826, 8681931 ####[facility] [address] [place] [address] Sodium [Moles/Vol] 142 mmol/L Normal 135-145 [facility] Comment on above: Performed By: #### 2 282980, 60703593, 7941063, 06944074, 705961434, 6496053, 1203368 ####[facility] [address] [place] [address] Urea nitrogen [Mass/Vol] 16 mg/dL Normal 5-21 [facility] Comment on above: Performed By: #### 2 396444, 16403105, 9467728, 37496611, 432800225, 9914404, 6734045 ####[facility] [address] [place] [address] Urea nitrogen/Creatinine [Mass ratio] 23 No Units High 10-20 [facility] Comment on above: Performed By: #### 2 747384, 04310227, 2034150, 12726461, 648001412, 7081814, 5599445 ####[facility] [address] [place] [address] CHEMISTRYOrdered By: SYSTEM SYSTEM on 01-17-2023 25-hydroxyvitamin D3 [Mass/Vol] 44.4 ng/mL Normal 30.0 - 100.0 ng/mL [facility] Anion gap [Moles/Vol] 14 mmol/L Normal 6 - 16 mEq/L [facility] Calcium [Mass/Vol] 10.1 mg/dL Normal 8.9 - 11.1 mg/dL [facility] Chloride [Moles/Vol] 105 mmol/L Normal 101 - 111 mmol/L [facility] Cholesterol [Mass/Vol] 246 mg/dL High 120 - 200 mg/dL [facility] Cholesterol in HDL [Mass/Vol] 55 mg/dL Invalid Interpretation Code [facility] Cholesterol in LDL [Mass/Vol] 183 mg/dL High <=129mg/dL [facility] Cholesterol in VLDL [Mass/Vol] 11 mg/dL Normal 7 - 40 mg/dL [facility] CO2 [Moles/Vol] 27 mmol/L Normal 21 - 31 mmol/L [facility] Cobalamin (Vitamin B12) [Mass/Vol] 249 pg/mL Normal 50 - 1500 pg/mL [facility] Creatinine [Mass/Vol] 0.7 mg/dL Normal 0.5 - 1.3 mg/dL [facility] GFR/1.73 sq M.predicted among non-blacks MDRD (S/P/Bld) [Vol rate/Area] 95 mL/min/1.73 m2 Normal >=59mL/min/1.73 m2 [facility] S Glucose [Mass/Vol] 93 mg/dL Normal 55 - 199 mg/dL [facility] Potassium [Moles/Vol] 4.0 mmol/L Normal 3.5 - 5.3 mmol/L [facility] Sodium [Moles/Vol] 142 mmol/L Normal 135 - 145 mmol/L [facility] Triglyceride [Mass/Vol] 56 mg/dL Normal <=149mg/dL [facility] TSH Qn 0.77 m[IU]/L Normal 0.34 - 5.60 mcIU/mL [facility] Urea nitrogen [Mass/Vol] 16 mg/dL Normal 5 - 21 mg/dL [facility] Urea nitrogen/Creatinine [Mass ratio] 23 mg/mg High 10 - 20 [facility] Family Medicine Office/Clini c Noteon 01-17-2023 Family Medicine Office/Clinic Note HPI Staff Loraine is a 67 year old female presenting for follow up hypothroidism Patient is here for follow up on Thyroid Disease. Do you have any of the following symptoms? Change in energy level? no but still gets really tired Weight change? no Heat/cold intolerance? no Hair/skin/nail changes? no does lose alot of hair Change in bowels? no Last TSH: TSH: 0.28 mcIU/mL Low (10/13/22 10:15:00) covid: refused flu: refused questions/concerns: joint pain and what she can do for it still on 90mcg armour thyroid, before refills it wants be sure dose is okay History of Present Illness Patient presents for follow-up on her thyroid. Patient's thyroid labs showed an elevated TSH but a normal T4. Patient is concerned as she still feels a little sluggish. Patient would like her labs rechecked today. Patient is also wanting multiple other labs done. Patient did have a slip and fall and rain. But states no other issues from that time. Patient has bilateral shoulder pain for which she believes is arthritis. Patient states she does not want any further treatment. Patient is concern for blood sugar issues given that her family all struggle with her blood sugars. Patient's last blood sugar was within normal limits. Review of Systems PHQ Score Initial Depression Screen Score: 0 Physical Exam Vitals & Measurements T: 36.9 ?C(Oral) HR: 64(Peripheral) RR: 14 BP: 144/86 SpO2: 98% HT: 67 in HT: 170.2 cm WT: 98.6 kg WT: 216.92 lb BMI: 34.04 General: alert, no acute distress ENMT: oral mucosa moist, Cardiovascular: regular rate and rhythm, normal peripheral perfusion Respiratory: Lungs CTA, respirations non labored Extremities: no deformity, no trauma Neurological: oriented x 4, LOC appropriate for age, CN II-XII intact, motor strength equal & normal bilaterally, speech normal Abdomen: Soft, Nontender, Non-distended, + BS Assessment/Plan Total time spent preparing for the encounter, evaluating and assessing the patient, documenting the visit, and ordering appropriate follow-up work was 45 minutes. 1. Hypothyroidism, unspecified type (E03.9: Hypothyroidism, unspecified) We will recheck labs today. We will add a T4 and a T3. Ordered: Basic Metabolic Panel Lipid Panel T3 Free TSH With T4fr Reflex Vitamin B12 Level Vitamin D 25 Hydroxy 2. History of vitamin D deficiency, (Z86.39: Personal history of other endocrine, nutritional and metabolic disease) We will recheck. History of non anemic vitamin B12 deficiency We will recheck. Ordered: Basic Metabolic Panel Lipid Panel T3 Free TSH With T4fr Reflex Vitamin B12 Level Vitamin D 25 Hydroxy 4. Obesity (E66.9: Obesity, unspecified) We will check blood sugars today. Discussed diet and exercise in detail. Ordered: Basic Metabolic Panel Lipid Panel T3 Free TSH With T4fr Reflex Vitamin B12 Level Vitamin D 25 Hydroxy 5. Osteoarthritis (M19.90: Unspecified osteoarthritis, unspecified site) Patient refusing further work-up. OTC medication advised. If shoulder pain worsens we will send to Ortho for possible joint injections. Ordered: Vitamin B12 Level Follow-up No qualifying data available Problem List/Past Medical History Ongoing Bee sting allergy BMI 33.0-33.9,adult Breast cancer screening Cervical cancer screening History of non anemic vitamin B12 deficiency History of vitamin D deficiency Hypothyroidism, unspecified type Non-compliance Obesity Osteoarthritis Parasomnia Screen for colon cancer Screening for cardiovascular condition White coat syndrome with hypertension Historical No qualifying data Procedure/Surgical History Bilateral tubal ligation, D&C - Dilatation and curettage. Medications [place] Thyroid 90 mg Tab, 90 mg= 1 tab(s), Oral, Daily biotin 1000 mcg oral tablet, 1000 mcg= 1 tab(s), Oral, Daily calcitriol topical 3 mcg/g ointment, See Instructions, 1 refills, Self Directed dapsone 5% gel, See Instructions, 1 refills EpiPen 2-Beau 0.3 mg injectable kit, 0.3 mg, IntraMuscular, Once, 2 refills lysine 500 mg oral tablet, 500 mg= 1 tab(s), Oral, Daily Ocuvite Vitamin B6 100 mg Tab Vitamin D3 5000 intl units oral capsule, 5000 International_Unit= 1 cap(s), Oral, Daily Zyrtec Allergies Bee Stings (Itching, Swelling) Social History Alcohol - Denies Alcohol Use, 06/26/2019 Household alcohol concerns: No., 08/26/2022 Substance Abuse - Denies Substance Abuse, 06/26/2019 Household substance abuse concerns: No., 08/26/2022 Tobacco - Denies Tobacco Use, 12/01/2020 Never (less than 100 in lifetime) Tobacco Use:. Never Smokeless Tobacco Use:. Household tobacco concerns: No., 01/17/2023 Family History Anxiety: Mother. Depression: Mother. Diabetes mellitus type 2: Brother. Hypertension: Mother. Stroke: Mother. Immunizations Vaccine Date Status Comments influenza virus vaccine, inactivated - Not Given Patient Refuses Normal [facility] Comment on above: Result Comment: Elec tronically Signed By: Cheo GUERRERO, Johnie Zaman.br\Date and Time Signed: 01/17/23 10:01 EDT Lipid Panelon 01-17-2023 Cholesterol [Mass/Vol] 246 mg/dL High 120-200 [facility] Comment on above: Performed By: #### 2 555473, 73763560, 8620443, 95335958, 991512251, 3714604, 3111550 ####[facility] [address] [place] [address] Cholesterol in HDL [Mass/Vol] 55 mg/dL Invalid Interpretation Code [facility] Comment on above: Result Comment: HDL > or equal to 60 mg/dL: Low cardiovascular risk HDL < 40 mg/dL : High cardiovascular risk Performed By: #### 2 248499, 66643422, 6742867, 27022738, 688089651, 4376989, 9757528 ####[facility] [address] [place] [address] Cholesterol in LDL [Mass/Vol] 183 mg/dL High <=129 [facility] Comment on above: Performed By: #### 2 389305, 01660607, 3607718, 45059018, 714974844, 5372989, 8575143 ####[facility] [address] [place] [address] Cholesterol in VLDL [Mass/Vol] 11 mg/dL Normal 7-40 [facility] Comment on above: Performed By: #### 2 992703, 52683272, 6883988, 13257996, 051384031, 6887232, 7487192 ####[facility] [address] [place] [address] Triglyceride [Mass/Vol] 56 mg/dL Normal <=149 [facility] Comment on above: Performed By: #### 2 852523, 94579229, 0549750, 65077846, 474360789, 0256265, 1882563 ####[facility] [address] [place] [address] TSH With T4fr Reflexon 01-17 TSH Qn 0.77 m[IU]/L Normal 0.34-5.60 [facility] Comment on above: Performed By: #### 2 874792, 60294037, 1097833, 76587782, 710881303, 0239209, 4191842 ####[facility] [address] [place] [address] Vit B12on 01-17-2023 Cobalamin (Vitamin B12) [Mass/Vol] 249 pg/mL Normal 50-1500 [facility] Comment on above: Performed By: #### 2 363777, 76034546, 9235884, 53577507, 909439574, 8642423, 5750240 ####[facility] [address] [place] [address] Vitamin D 25 Hydroxyon 01-17 25-hydroxyvitamin D3 [Mass/Vol] 44.4 ng/mL Normal 30.0-100.0 [facility] Comment on above: Result Comment: Vit franks D deficiency has been defined as a level of serum 25-OH vitamin D less than 20 ng/mL (1,2) by the Cost of Medicine and an Endocrine Society practice guideline. The Endocrine Society further defined vitamin D insufficiency as a level between 21 and 29 ng/mL (2). 1. IOM (Cost of Medicine). 2010. Dietary reference intakes for calcium and D. [place]: The National Academies Press. 2. Lars MF, Nadia WALKER, Mag GUSMAN, et al. Evaluation, treatment, and prevention of vitamin D deficiency: an Endocrine Society clinical practice guideline. JCEM. 2010; 96 (7):1911-30. Performed By: #### 2 280217, 31244394, 9432487, 80726140, 844039763, 9310356, 0370183 ####[facility] [address] [place] [address] eGFRon 01-17-2023 GFR/1.73 sq M.predicted among non-blacks MDRD (S/P/Bld) [Vol rate/Area] 95 mL/min/1.73 m2 Normal >=59 [facility] Comment on above: Order Comment: Order added by Discern Expert. Result Comment: Emissions Technician dee kidney disease could be indicated at eGFR's of less than 60 mL/min/1.73m2. Kidney failure is indicated at less than 15 mL/min/1.73m2. Performed By: #### 2 515529, 87063488, 0208539, 91145344, 591981133, 8313049, 3468801 ####[facility] [address] [place] [address] CHEMISTRYOrdered By: SYSTEM SYSTEM on 08-26-2022 25-hydroxyvitamin D3 [Mass/Vol] 47.6 ng/mL Normal 30.0 - 100.0 ng/mL [facility] Albumin [Mass/Vol] 4.4 g/dL Normal 3.3 - 5.0 gm/dL F [facility] Albumin/Globulin [Mass ratio] 1.4 {ratio} Normal 1.1 - 2.2 [facility] ALP [Catalytic activity/Vol] 66 [iU]/d Normal 21 - 98 Int._Unit/L [facility] ALT No additional P-5'-P [Catalytic activity/Vol] 22 [iU]/d Normal 6 - 46 Int._Unit/L [facility] Anion gap [Moles/Vol] 13 mmol/L Normal 6 - 16 mEq/L [facility] AST [Catalytic activity/Vol] 22 [iU]/d Normal 5 - 43 Int._Unit/L [facility] Bilirubin [Mass/Vol] 0.8 mg/dL Normal 0.0 - 1.1 mg/dL [facility] Calcium [Mass/Vol] 9.4 mg/dL Normal 8.9 - 11.1 mg/dL [facility] Chloride [Moles/Vol] 103 mmol/L Normal 101 - 111 mmol/L [facility] Cholesterol [Mass/Vol] 262 mg/dL High 120 - 200 mg/dL [facility] Cholesterol in HDL [Mass/Vol] 55 mg/dL Invalid Interpretation Code [facility] Cholesterol in LDL [Mass/Vol] 197 mg/dL High <=129mg/dL [facility] Cholesterol in VLDL [Mass/Vol] 15 mg/dL Normal 7 - 40 mg/dL [facility] CO2 [Moles/Vol] 26 mmol/L Normal 21 - 31 mmol/L [facility] Creatinine [Mass/Vol] 0.7 mg/dL Normal 0.5 - 1.3 mg/dL [facility] Free T4 [Mass/Vol] 0.70 ng/dL Normal 0.58 - 1.64 ng/dL [facility] GFR/1.73 sq M.predicted among non-blacks MDRD (S/P/Bld) [Vol rate/Area] 96 mL/min/1.73 m2 Normal >=59mL/min/1.73 m2 [facility] Chem S Globulin (S) [Mass/Vol] 3.2 g/dL Normal 1.4 - 4.0 gm/dL [facility] Glucose [Mass/Vol] 89 mg/dL Normal 55 - 199 mg/dL [facility] Potassium [Moles/Vol] 4.1 mmol/L Normal 3.5 - 5.3 mmol/L [facility] Protein [Mass/Vol] 7.6 g/dL Normal 6.0 - 7.8 gm/dL [facility] Sodium [Moles/Vol] 138 mmol/L Normal 135 - 145 mmol/L [facility] Triglyceride [Mass/Vol] 75 mg/dL Normal <=149mg/dL [facility] TSH Qn 1.15 m[IU]/L Normal 0.34 - 5.60 mcIU/mL [facility] Urea nitrogen [Mass/Vol] 12 mg/dL Normal 5 - 21 mg/dL [facility] Urea nitrogen/Creatinine [Mass ratio] 17 mg/mg Normal 10 - 20 [facility] CHEMISTRYOrdered By: SYSTEM SYSTEM on 03-02-2022 25-hydroxyvitamin D3 [Mass/Vol] 53.4 ng/mL Normal 30.0 - 100.0 ng/mL [facility] Albumin [Mass/Vol] 4.0 g/dL Normal 3.3 - 5.0 gm/dL [facility] Albumin/Globulin [Mass ratio] 1.3 {ratio} Normal 1.1 - 2.2 [facility] ALP [Catalytic activity/Vol] 51 [iU]/d Normal 21 - 98 Int._Unit/L [facility] ALT No additional P-5'-P [Catalytic activity/Vol] 20 [iU]/d Normal 6 - 46 Int._Unit/L [facility] Anion gap [Moles/Vol] 15 mmol/L Normal 6 - 16 mEq/L [facility] AST [Catalytic activity/Vol] 23 [iU]/d Normal 5 - 43 Int._Unit/L [facility] Bilirubin [Mass/Vol] 0.7 mg/dL Normal 0.0 - 1.1 mg/dL [facility] Calcium [Mass/Vol] 9.4 mg/dL Normal 8.9 - 11.1 mg/dL [facility] Chloride [Moles/Vol] 100 mmol/L Low 101 - 111 mmol/L [facility] Cholesterol [Mass/Vol] 210 mg/dL High 120 - 200 mg/dL [facility] Cholesterol in HDL [Mass/Vol] 56 mg/dL Invalid Interpretation Code [facility] Cholesterol in LDL [Mass/Vol] 147 mg/dL High <=129mg/dL [facility] Cholesterol in VLDL [Mass/Vol] 8 mg/dL Normal 7 - 40 mg/dL [facility] CO2 [Moles/Vol] 26 mmol/L Normal 21 - 31 mmol/L [facility] Cobalamin (Vitamin B12) [Mass/Vol] 254 pg/mL Normal 50 - 1500 pg/mL [facility] Creatinine [Mass/Vol] 0.7 mg/dL Normal 0.5 - 1.3 mg/dL [facility] Free T4 [Mass/Vol] 0.57 ng/dL Low 0.58 - 1.64 ng/dL [facility] GFR/1.73 sq M.predicted among blacks MDRD (S/P/Bld) [Vol rate/Area] mL/min/1.73 m2 Normal >=59mL/min/1.73 m2 [facility] Chem S GFR/1.73 sq M.predicted among non-blacks MDRD (S/P/Bld) [Vol rate/Area] mL/min/1.73 m2 Normal >=59mL/min/1.73 m2 [facility] Chem S Globulin (S) [Mass/Vol] 3.0 g/dL Normal 1.4 - 4.0 gm/dL [facility] Glucose [Mass/Vol] 81 mg/dL Normal 55 - 199 mg/dL [facility] Potassium [Moles/Vol] 4.2 mmol/L Normal 3.5 - 5.3 mmol/L [facility] Protein [Mass/Vol] 7.0 g/dL Normal 6.0 - 7.8 gm/dL F [facility] Sodium [Moles/Vol] 137 mmol/L Normal 135 - 145 mmol/L [facility] Triglyceride [Mass/Vol] 39 mg/dL Normal <=149mg/dL [facility] TSH Qn 0.24 m[IU]/L Low 0.34 - 5.60 mcIU/mL [facility] Urea nitrogen [Mass/Vol] 11 mg/dL Normal 5 - 21 mg/dL [facility] Urea nitrogen/Creatinine [Mass ratio] 16 mg/mg Normal 10 - 20 [facility] CHEMISTRYOrdered By: SYSTEM SYSTEM on 11-02-2021 25-hydroxyvitamin D3 [Mass/Vol] 68.0 ng/mL Normal 30.0 - 100.0 ng/mL [facility] Free T4 [Mass/Vol] 0.86 ng/dL Normal 0.58 - 1.64 ng/dL [facility] TSH Qn 0.01 m[IU]/L Low 0.34 - 5.60 mcIU/mL [facility] Remisol CHEMISTRYOrdered By: Martinez ortiz on 11-02-2021 HbA1c (Bld) [Mass fraction] 5.5 % Normal <=5.9% [facility] ChemAutoSS Vital Signs Date Time Vital Sign Value Performing Clinician Faci [facility] 08-26-2022 11:29-0400 Blood Pressure Location Malina Klonk [facility] 08-26-2022 11:29-0400 Body temperature 97.52 [degF] Malina Klonk [facility] 08-26-2022 11:29-0400 Diastolic blood pressure 82 mm[Hg] Malina Klonk [facility] 08-26-2022 11:29-0400 Heart rate 67 /min Malina Klonk [facility] 08-26-2022 11:29-0400 SaO2% (BldA) [Mass fraction] 97 % Malina Klonk [facility] 08-26-2022 11:29-0400 Systolic blood pressure 132 mm[Hg] Malina Klonk [facility] 03-02-2022 12:05-0500 Diastolic blood pressure 84 mm[Hg] Malina Klonk [facility] 03-02-2022 12:05-0500 Mean blood pressure 100 mm[Hg] Malina Klonk [facility] 03-02-2022 12:05-0500 Systolic blood pressure 132 mm[Hg] Malina Klonk [facility] 03-02-2022 11:32-0500 Blood Pressure Location Malina Klonk [facility] 03-02-2022 11:32-0500 Body temperature 97.52 [degF] Malina Klonk [facility] 03-02-2022 11:32-0500 Diastolic blood pressure 92 mm[Hg] Malina Klonk [facility] 03-02-2022 11:32-0500 Heart rate 60 /min Malina Klonk [facility] 03-02-2022 11:32-0500 SaO2% (BldA) [Mass fraction] 97 % Malina Klonk [facility] 03-02-2022 11:32-0500 Systolic blood pressure 162 mm[Hg] Malina Klonk [facility] 08-31-2021 11:33-0400 Diastolic blood pressure 82 mm[Hg] Malina Klonk [facility] 08-31-2021 11:33-0400 Mean blood pressure 98 mm[Hg] Malina Klonk [facility] 08-31-2021 11:33-0400 Systolic blood pressure 130 mm[Hg] Malina Klonk [facility] 08-31-2021 11:09-0400 Blood Pressure Location Malina Klonk [facility] 08-31-2021 11:09-0400 Body temperature 98.06 [degF] Malina Klonk [facility] 08-31-2021 11:09-0400 Diastolic blood pressure 90 mm[Hg] Malina Harrington [facility] 08-31-2021 11:09-0400 Heart rate 80 /min Malina Harrington [facility] 08-31-2021 11:09-0400 SaO2% (BldA) [Mass fraction] 97 % Malina Harrington [facility] 08-31-2021 11:09-0400 Systolic blood pressure 156 mm[Hg] Malina Harrington [facility] Encounters Encounter Date Encounter Type Care Provider Facility Start: 10-18-2023 End: 10-18-2023 ambulatory Johnie Grider Facility: [facility] Start: 10-17-2023 ambulatory Johnie Grider Facility : [facility] Start: 09-01-2023 End: 09-01-2023 Lab Drop off Johnie Grider [facility] Start: 09-01-2023 End: 09-01-2023 ambulatory Johnie Grider Facility:[facility] Start: 04-28-2023 End: 04-28-2023 ambulatory Johnie Grider Facility: [facility] Start: 04-11-2023 ambulatory Johnie Grider Facility : [facility] Start: 04-07-2023 End: 04-07-2023 ambulatory Johnie Grider Facility: [facility] Start: 03-14-2023 End: 03-14-2023 Lab Drop off Johnie Grider [facility] Start: 03-14-2023 End: 03-14-2023 ambulatory Johnie Grider Facility:[facility] Start: 01-17-2023 End: 01-17-2023 ambulatory Johnie Grider Facility:[facility] Start: 01-17-2023 End: 01-17-2023 Lab Drop off Johnie Grider [facility] Start: 01-17-2023 End: 01-17-2023 ambulatory Johnie Grider Facility:[facility] Start: 08-26-2022 End: 08-26-2022 Lab Drop off Malina Harrington [facility] Start: 08-26-2022 End: 08-26-2022 Patient encounter procedure Malina Harrington [facility] Start: 03-02-2022 End: 03-02-2022 Lab Drop off Malina Harrington [facility] Start: 03-02-2022 End: 03-02-2022 Patient encounter procedure Malina Harrington [facility] Start: 11-02-2021 End: 11-02-2021 Lab Drop off Malina Harrington [facility] Start: 11-02-2021 End: 11-02-2021 Patient encounter procedure Devonte ANNE [facility] Start: 08-31-2021 End: 08-31-2021 Patient encounter procedure Malina Harrington [facility] Procedures Date Procedure Procedure Detail Performing Clinician Bilateral tubal ligation Jacob Harrington Dilation and curetta ge of uterus Malina Harrington Dilation and curetta ge of uterus Johnie Grider Comment on above: ectopic Plan of Treatment Date Care Activity Detail Author Start: 03-27-2024 ambulatory Ambulatory Facility:[facility] Start: 12-05-2023 ambulatory Ambulatory Facility:[facility] Immunizations Immunization Date Immunization Notes Care Provider Fa ed NEGATED: Highlighted row has not occurred!03-02-2022 influenza virus vaccine, unspecified formulation Malina Harrington [facility] [place] Payers Date Payer Category Payer Private Health Insurance [id number] 1955 Unknown [id number] 2.16.8 [id number]. 1955 Unknown [id number] 2.16.8 40.1.832512.3.579.2 1956 Unknown [id number] 2.16.8 40.1.826835.3.579.2 1956 Unknown [id number] 2.16.8 40.1.314636.3.579.2 1956 Unknown [id number] 2.16.8 40.1.661576.3.579.2 1956 Unknown [id number] 2.16.8 40.1.566628.3.579.2. 1956 Unknown [id number] 2.16.8 40.1.991960.3.579.2 1956 Unknown [id number] 2.16.8 40.1.572575.3.579.2 1956 Unknown [id number] 2.16.8 40.1.515830.3.579.2 1956 Unknown [id number] 2.16.8 40.1.480878.3.579.2.727 1956 Unknown [id number] 2.16.8 40.1.403968.3.579.2.727 1956 Unknown [id number] 2.16.8 40.1.890097.3.579.2.727 1956 Unknown [id number] 2.16.8 40.1.141297.3.579.2.727 Social History Date Type Detail Facility Start: 08-31-2021 End: 09-01-2023 Tobacco smoking status Never smoked tobacco (finding) [facility] Comment on above: denies Tobacco smoking status Never [facility] Comment on above: denies Sex Assigned At Female [facility] Functional Status Date Assessment Result Facility 08-26-2022 Functional Status N/A [facility] 03-02-2022 Functional Status N/A [facility] Clinical Notes 03-02-2022 to 08-26-2022 RadiologyRadiologyLaboratoryLaboratoryLaboratoryRadiologyRadiologyRadiology Note Date & Type Note Facility 08-26-2022 Evaluation + Plan note Diagnostic Tests PendingT3 Free 08/26/22 Future Scheduled TestsMA Mamm Screen w/CAD if perf and 3D Oswaldo 03/02/22 [facility] 03-02-2022 Evaluation + Plan note Future Scheduled TestsMA Mamm Screen w/CAD if perf and 3D Oswaldo 03/02/22 [facility] Evaluation + Plan note Future Appointments Appointment Date:03/01/2022 11:20:00 AM Scheduled Provider:Malina Harrington NP Location:[facility] Appointment Type: Open Future Scheduled TestsThyroid Stimulating Hormone 12/01/20 [facility] Evaluation + Plan note Future Appointments Appointment Date:11/06/2021 11:20:00 AM Scheduled Provider:Malina Harrington NP Location:[facility] Appointment Type:FM Open Appointment Date:03/01/2022 11:20:00 AM Scheduled Provider:Malina Harrington NP Location:[facility] Appointment Type:FM Open Future Scheduled TestsThyroid Stimulating Hormone 12/01/20 [facility] Evaluation + Plan note Future Appointments Appointment Date:11/06/2021 11:20:00 AM Scheduled Provider:Malina Harrington NP Location:[facility] Appointment Type:FM Open Appointment Date:03/01/2022 11:20:00 AM Scheduled Provider:Malina Harrington NP Location:[facility] Appointment Type: Open Diagnostic Tests PendingT3 Free 11/02/21 Future Scheduled TestsThyroid Stimulating Hormone 12/01/20 [facility] Evaluation + Plan note Future Appointments Appointment Date:2022 11:20:00 AM Scheduled Provider:Malina Harrington NP Location:[facility] Appointment Type: Open Future Scheduled TestsMA Mamm Screen w/CAD if perf and 3D Oswaldo 03/02/22 [facility] Evaluation + Plan note Future Appointments Appointment Date:2022 11:20:00 AM Scheduled Provider:Malina Harrington NP Location:[facility] Appointment Type: Open Diagnostic Tests PendingT3 Free 03/02/22 Future Scheduled TestsMA Mamm Screen w/CAD if perf and 3D Oswaldo 03/02/22 [facility] Evaluation + Plan note Future Appointments Appointment Date:04/06/2023 03:30:00 PM Scheduled Provider: [facility]: Medicare Wellness Initial Appointment Date:04/06/2023 03:40:00 PM Scheduled Provider:Johnie Grider MD [facility] Type: Open Diagnostic Tests PendingT3 Free 01/17/23 Future Scheduled TestsMA Mamm Screen w/CAD if perf and 3D Oswaldo 03/02/22 [facility] Evaluation + Plan note Future Appointments Appointment Date:04/07/2023 02:00:00 PM Scheduled Provider: [facility] Type: Medicare Wellness Initial Appointment Date:09/12/2023 09:15:00 AM Scheduled Provider:Johnie Grider MD Location:[facility] Appointment Type: Open Diagnostic Tests PendingT3 Free 03/14/23 [facility] Evaluation + Plan note Future Appointments Appointment Date:12/05/2023 10:15:00 AM Scheduled Provider:Johnie Grider MD Location:[facility] Appointment Type: Open Appointment Date:03/27/2024 08:00:00 AM Scheduled Provider: Location:[facility] Appointment Type:FM Medicare Wellness Subsequent Diagnostic Tests PendingT3 Free 09/01/23Thyroid Perox.tpo Ab 09/01/23TgAb+Thyroglobulin,ROD or ANGELINA 09/01/23 [facility] Hospital course Narrative No data available for this section [facility] Hospital Discharge instructions No data available for this section [facility] Progress note No data available for this section [facility] Summary Purpose Family History No Family History Records Found Advance Directives No Advanced Directives Records Found Additional Source Comments Care Team (unrecognized sect ion and content) Personnel Name: Malina Harrington NP Address: [address] [place] [address] Personnel Name: Malina Harrington NP Address: [address] [place] [address] Personnel Name: Malina Harrington NP Address: Address: [address] [place] [address] Personnel Name: Malina Harrington NP Address: Address: [address] [place] [address] Personnel Name: Malina Harrington NP Address: Address: [address] [place] [address] Personnel Name: Malina Harrington NP Address: Address: [address] [place] [address] Personnel Name: Johnie Grider MD Address: [facility] Personnel Name: Ross MD, Johnie E. Address: Address: [address] [place] [address]- Personnel Name: Cheo GUERRERO Johnie Carley Address: Address: [facility] [place] [address]- INFORMATION SOURCE (unrecogn ized section and content) DATE CREATED AUTHOR 10/20/[address] [facility] FOR RECORDS PERTAINING TO PATIENTS WHO ARE OR HAVE BEEN ENROLLED IN A CHEMICAL DEPENDENCY/SUBSTANCEABUSE PROGRAM, SOME INFORMATION MAY BE OMITTED. This clinical summary was aggregated from multiple sources. Caution should be exercised in using it in the provision of clinical care. This summary normalizes information from multiple sources, and as a consequence, information in this document may materially change the coding, format and clinical context of patient data. In addition, data may be omitted in some cases. CLINICAL DECISIONS SHOULD BE BASED ON THE PRIMARY CLINICAL RECORDS. [facility] [employer] provides no warranty or guarantee of the accuracy or completeness of information in this document.
== END 2023-11-28 09:57 | disposition home or self-care (01) ==
LOC: EC 09:56
PROVIDERS: PCP Family Medicine; Visit Provider Orthopaedic Surgery
DX: M25.561 Pain in right knee (principal); M17.11 Unilateral primary osteoarthritis, right knee
CPT/HCPCS: 73564